=== PATIENT | female | born 1935 | race Caucasian/White ===

== ENCOUNTER → 2016-06-17 | Outpatient (CLI) | payer OTHER, MEDICARE ==
[~2016-06-17] MED LIST: AZITTAB PO; MULT-506 PO; PRAV20TA PO; SENNTAB23 PO; SERT25TA PO
--- NOTE | 2016-06-17 13:30 | MAMMOGRAPHY REPORT ---
BILATERAL DIGITAL SCREENING MAMMOGRAM WITH CAD: 06/17/2016 CLINICAL HISTORY: Routine screening. Patient has no complaints. TECHNIQUE: Current study was also evaluated with a Computer Aided Detection (CAD) system. Bilatera l CC and MLO views were obtained. COMPARISON: Comparison is made to exams dated: 06/10/2015 mammogram, 06/04/2013 mammogram, 06/06/2014 mammogram, 06/01/2012 mammogram, 05/31/2011 mammogram, and 05/28/2010 mammogram - [facility]. BREAST COMPOSITION: There are scattered areas of fibroglandular density in both breasts. FINDINGS: No suspicious masses, calcifications, or areas of architectural distortion are noted in e ither breast. There has been no significant interval change compared to prior exams. Bilateral asym metries and scattered bilateral benign-appearing calcifications are not significantly changed. IMPRESSION: ACR BI-RADS CATEGORY 2: BENIGN There is no mammographic evidence of malignancy. A 1 year screening mammogram is recommended. The p atient will receive written notification of the results. Approximately 10% of breast cancers are not detected with mammography. A negative mammographic repor t should not delay biopsy if a clinically suggestive mass is present. Ellie Max M.D. ah/:06/17/2016 12:02:42 Heel Sprayer: Tarsha BILLY([place])(M), [facility] letter sent: Normal 1/2 BI-RADS Code: ACR BI-RADS Category 2: Benign
== END | disposition home or self-care (01) ==
LOC: C.MAMM 10:17
PROVIDERS: ATTEND Internal Medicine Pulmonary Disease
DX: Z12.31 Encounter for screening mammogram for malignant neoplasm of breast (principal)

== ENCOUNTER 2016-10-24 11:41 | Emergency (ER) | payer OTHER, MEDICARE ==
[~2016-10-24] VITALS: Ht 170.2 cm; Wt 61.0 kg
[~2016-10-24 11:41] MED LIST changes: -AZITTAB PO
[2016-10-24 11:43] VITALS: Ht 170.2 cm; Wt 61.0 kg
--- NOTE | 2016-10-24 11:58 | EMERGENCY ROOM VISIT NOTE ---
History Report prepared by Augustine: Teodora Jin Under the Supervision of: Dr. Jamel Ricks M.D. First contact with patient: 11:47 Chief Complaint: COUGH Stated Complaint: COUGH X 1 WK, RIB PAIN History of Present Illness The patient is an 81 year old female who presents to the Emergency Room with complaints of a persistent cough for the past week. The patient reports that she went to [facility] this morning for her cough. She states that while she was there she had a chest x-ray done and her heart rate was elevated. The patient reports that today she developed hemoptysis. She reports pain in her chest with coughing. The patient states that she goes to cardio-rehab three times per week. She denies any history of a previous [place] or heart disease. The patient denies being on any anti-coagulants. Source of History: patient Onset: the past week Position: other (global) Quality: other (cough) Timing: other (persistent) Associated Symptoms: + chest pain Note: Associated Symptoms: hemoptysis Review of Systems All systems have been listed, reviewed, and are negative other than those previously mentioned. Please see Additional Medical History Sheet. Past Medical & Surgical Surgical Problems: (1) History of knee replacement (2) Hx of cholecystectomy Family History Cancer Gallbladder disease Lung disease Social History Smoking Status: Never Smoker Smokeless Tobacco Use: No Alcohol Use: occasionally Drug Use: none Marital Status: Housing Status: lives with significant other Occupation Status: retired Current/Historical Medications Scheduled Azithromycin (Zithromax Z-Ta), 0 PO UD Multivitamin (Multivitamin), 1 TAB PO QAM Pravastatin (Pravachol ), 20 MG PO HS Sertraline (Zoloft), 25 MG PO HS Allergies Coded Allergies: Adhesives (Verified Allergy, Unknown, REDNESS ON CHEST FROM BANDAIDS, ) Physical Exam Vital Signs Date Time Temp Pulse Resp B/P (MAP) Pulse Ox O2 Delivery O2 Flow Rate FiO2 10/24/16 13:12 36.6 75 20 158/89 95 10/24/16 13:11 95 Room Air 10/24/16 13:00 75 20 158/89 95 Room Air 10/24/16 11:43 36.6 104 18 136/77 97 Room Air Physical Exam GENERAL: Patient awake, alert, oriented x 3. Patient follows commands. Patient does not appear toxic. Patient is adequately hydrated and well- nourished. SKIN: No erythema, pallor, cyanosis or rash HEENT: Normal head, pupils equal, reactive to light and accommodation. Increased cerumen bilaterally. Oral cavity and posterior pharynx appear normal. Neck: Without adenopathy, no neck vein distention. CHEST WALL: Pain on inspiration on anterior chest. LUNGS: Clear to auscultation. No wheezes, no rales, no rhonchi. HEART: No murmurs. No gallops. No rubs ABDOMEN: No masses, no rebound, no hepatomegaly or splenomegaly. EXTREMITIES: No signs of trauma. No pedal or pretibial edema. No calf or thigh tenderness. NEUROLOGIC: Cranial nerves II-XII within normal limits. No gross motor sensory function deficits. Medical Decision & Procedures ER Provider Diagnostic Interpretation: [facility]: Slight atelectasis left base, no other infiltrates seen. Laboratory Results 10/24/16 12:00 Red Blood Count 4.91, Mean Corpuscular Volume 94.9, Mean Corpuscular Hemoglobin 31.6, Mean Corpuscular Hemoglobin Concent 33.3, Mean Platelet Volume 9.3, Neutrophils (%) (Auto) 55.0, Lymphocytes (%) (Auto) 25.6, Monocytes (%) (Auto) 11.0, Eosinophils (%) (Auto) 7.6, Basophils (%) (Auto) 0.6, Neutrophils # (Auto ) 2.59, Lymphocytes # (Auto) 1.21, Monocytes # (Auto) 0.52, Eosinophils # (Auto ) 0.36, Basophils # (Auto) 0.03 10/24/16 12:00 Test 10/24/16 12:00 White Blood Count 4.72 K/uL (4.8-10.8) Red Blood Count 4.91 M/uL (4.2-5.4) Hemoglobin 15.5 g/dL (12.0-16.0) Hematocrit 46.6 % (37-47) Mean Corpuscular Volume 94.9 fL (80-100) Mean Corpuscular Hemoglobin 31.6 pg (25-34) Mean Corpuscular Hemoglobin Concent 33.3 g/dl (32-36) Platelet Count 202 K/uL (130-400) Mean Platelet Volume 9.3 fL (7.4-10.4) Neutrophils (%) (Auto) 55.0 % Lymphocytes (%) (Auto) 25.6 % Monocytes (%) (Auto) 11.0 % Eosinophils (%) (Auto) 7.6 % Basophils (%) (Auto) 0.6 % Neutrophils # (Auto) 2.59 K/uL (1.4-6.5) Lymphocytes # (Auto) 1.21 K/uL (1.2-3.4) Monocytes # (Auto) 0.52 K/uL (0.11-0.59) Eosinophils # (Auto) 0.36 K/uL (0-0.5) Basophils # (Auto) 0.03 K/uL (0-0.2) RDW Standard Deviation 45.2 fL (36.4-46.3) RDW Coefficient of Variation 13.0 % (11.5-14.5) Immature Granulocyte % (Auto) 0.2 % Immature Granulocyte # (Auto) 0.01 K/uL (0.00-0.02) Anion Gap 10.0 mmol/L (3-11) Est Creatinine Clear Calc Drug Dose 61.6 ml/min Estimated GFR () 94.6 Estimated GFR (Non- 81.6 BUN/Creatinine Ratio 21.1 (10-20) Calcium Level 8.8 mg/dl (8.5-10.1) Troponin I < 0.015 ng/ml (0-0.045) Laboratory results as stated above per my review. ECG Indication: other (cough) Rate (beats per minute): 96 Rhythm: normal sinus Findings: no acute ischemic change, no ectopy ED Course 1148: Past medical records reviewed. The patient was evaluated in room A11B. A complete history and physical examination was performed. 1249: I reevaluated the patient and she is resting comfortably. I discussed the exam findings with her and I discussed the treatment plan. She verbalized complete understanding and agreement. She is ready to go home. Medical Decision Nurses notes reviewed. Medical history sheet reviewed. Differential diagnosis includes but is not limited to: pneumonia, hemoptysis, PE, TB, bronchitis, rib fracture. 81-year-old female with a small amount of hemoptysis was sent here from [facility] for further evaluation. The patient has a small amount of atelectasis left base. White count is not elevated. Troponin and EKG appear normal. The patient is not hypoxic and I do not believe she has a PE. No rib fractures were seen on plain films. I believe the patient can safely return home. The patient will be placed on a course of Zithromax but will require follow-up to make sure that she is improving. Medication Reconciliation: I attest that I have personally reviewed the patient' s current medication list. Blood pressure Screening: Patient was found to have normal blood pressure on screening and does not require follow up. Impression Primary Impression: Pneumonitis Scribe Attestation The scribe's documentation has been prepared under my direction and personally reviewed by me in its entirety. I confirm that the note above accurately reflects all work, treatment, procedures, and medical decision making performed by me. Departure Information Dispostion Home / Self-Care Prescriptions Azithromycin (ZITHROMAX Z-TA) 250 Mg Tab 0 PO UD, #1 PKT Prov: Jamel Ricks M.D. 10/24/16 Referrals Ubaldo Max M.D. (PCP) Forms HOME CARE DOCUMENTATION FORM, IMPORTANT VISIT INFORMATION Patient Instructions My [facility] Additional Instructions 2 Zithromax today followed by one daily for 4 days. Continue all of your current medications as prescribed. Follow-up with your family physician/sign language interpreter within the next 7 days. Return here sooner if you become more short of breath or cough up more blood.
[2016-10-24 12:16] LABS: BASO % 0.6 %; BASO ABS # 0.03 K/uL (0-0.2); COMPLETE YES; EOS % 7.6 %; HEMATOCRIT 46.6 % (37-47); IG% 0.2 %; LYMPH % 25.6 %; LYMPH ABS # 1.21 K/uL (1.2-3.4); MEAN CELL VOLUME 94.9 fL (80-100); MEAN CORPUSCULAR HEMOGLOBIN 31.6 pg (25-34); MEAN CORPUSCULAR HGB CONC 33.3 g/dl (32-36); MEAN PLATELET VOLUME 9.3 fL (7.4-10.4); PLATELET COUNT 202 K/uL (130-400); RED BLOOD COUNT 4.91 M/uL (4.2-5.4); WHITE BLOOD COUNT 4.72 K/uL (4.8-10.8)
[2016-10-24 12:40] LABS: BLOOD UREA NITROGEN 15 mg/dl (7-18); BUN/CREATININE RATIO 21.1 (10-20); CALCIUM 8.8 mg/dl (8.5-10.1); CARBON DIOXIDE 26 mmol/L (21-32); CHLORIDE 107 mmol/L (98-107); CREATININE 0.69 mg/dl (0.60-1.20); GLUCOSE 102 mg/dl (70-99); POTASSIUM 4.1 mmol/L (3.5-5.1); SODIUM 143 mmol/L (136-145)
[2016-10-24] MEDS ORDERED: AZITTAB PO (12:58)
[2016-10-24 13:12] VITALS: BP 158/89; PULSE 75; TEMP 36.6; O2SAT 95
== END 2016-10-24 13:13 | disposition home or self-care (01) ==
LOC: C.EDB 11:42 → C.EDA 13:13
DX: J18.9 Pneumonia, unspecified organism (principal); Z80.9 Family history of malignant neoplasm, unspecified; Z83.79 Family history of other diseases of the digestive system; Z83.6 Family history of other diseases of the respiratory system; Z79.899 Other long term (current) drug therapy

== ENCOUNTER → 2016-11-09 | Outpatient (CLI) | payer OTHER, MEDICARE ==
[~2016-11-09] MED LIST changes: -SENNTAB23 PO
--- NOTE | 2016-11-09 10:02 | DIAGNOSTIC IMAGING REPORT ---
CHEST 2 VIEWS ROUTINE CLINICAL HISTORY: Acute bronchitis. COMPARISON STUDY: Chest radiograph the 2014. FINDINGS: Cervical spine fusion hardware is noted. There is no pneumothorax or pleural effusion. No evidence of pulmonary edema. No consolidation is identified. Linear left basilar opacity is unchanged and suggests atelectasis. Cardiomediastinal silhouette is normal. IMPRESSION: No acute cardiopulmonary findings. Electronically signed by: Colton Payton M.D. 11/09/2016 10:01 AM Dictated Date/Time: 11/09/2016 10:00 AM
== END | disposition home or self-care (01) ==
LOC: C.RAD1850 09:35
PROVIDERS: ATTEND Physician Assistant Medical
DX: J20.9 Acute bronchitis, unspecified (principal)

== ENCOUNTER → 2017-02-11 | Outpatient (CLI) | payer OTHER, MEDICARE ==
[2017-02-11 13:08] LABS: BASO % 0.5 %; BASO ABS # 0.03 K/uL (0-0.2); COMPLETE YES; EOS % 6.4 %; HEMATOCRIT 46.7 % (37-47); IG% 0.2 %; LYMPH % 30.5 %; LYMPH ABS # 1.71 K/uL (1.2-3.4); MEAN CELL VOLUME 95.9 fL (80-100); MEAN CORPUSCULAR HEMOGLOBIN 32.2 pg (25-34); MEAN CORPUSCULAR HGB CONC 33.6 g/dl (32-36); MEAN PLATELET VOLUME 9.7 fL (7.4-10.4); MONO % 9.6 %; NEUT % 52.8 %; PLATELET COUNT 217 K/uL (130-400); RED BLOOD COUNT 4.87 M/uL (4.2-5.4)
[2017-02-11 13:15] LABS: URINE APPEARANCE CLOUDY (CLEAR); URINE BILIRUBIN NEG (NEG); URINE COLOR YELLOW; URINE EPITHELIAL CELL AUTO >30 /lpf (0-5); URINE NITRITE NEG (NEG); URINE SPECIFIC GRAVITY 1.022 (1.000-1.030); UROBILINOGEN NEG (NEG); ZZUR CULT IF INDIC CLEAN CATCH YES
[2017-02-11 13:17] LABS: MANUAL MICROSCOPIC REQUIRED? NO; REVIEW REQ? YES
[2017-02-11 13:26] LABS: ALT/SGPT 26 U/L (12-78); AST/SGOT 21 U/L (15-37); BLOOD UREA NITROGEN 22 mg/dl (7-18); BUN/CREATININE RATIO 33.1 (10-20); CALCIUM 9.3 mg/dl (8.5-10.1); CARBON DIOXIDE 26 mmol/L (21-32); CHLORIDE 107 mmol/L (98-107); CREATININE 0.65 mg/dl (0.60-1.20); GLUCOSE 110 mg/dl (70-99); POTASSIUM 4.2 mmol/L (3.5-5.1); SODIUM 140 mmol/L (136-145)
[2017-02-11 13:36] LABS: ALB/GLOB RATIO 1.3 (0.9-2); ALKALINE PHOSPHATASE 70 U/L (45-117); CHOLESTEROL 198 mg/dl (0-200); CHOLESTEROL/HDL RATIO 2.5; HDL CHOLESTEROL 78 mg/dl; LDL CHOLESTEROL CALCULATED 95 mg/dl; TRIGLYCERIDES 123 mg/dl (0-150); VERY LOW DENSITY LIPOPROT CALC 25 mg/dl
== END | disposition home or self-care (01) ==
LOC: C.LAB1850 10:24
PROVIDERS: ATTEND Internal Medicine Pulmonary Disease
DX: Z00.00 Encounter for general adult medical examination without abnormal findings (principal); R39.9 Unspecified symptoms and signs involving the genitourinary system; F32.9 Major depressive disorder, single episode, unspecified; E78.5 Hyperlipidemia, unspecified; G62.9 Polyneuropathy, unspecified; M48.06 Spinal stenosis, lumbar region; M15.9 Polyosteoarthritis, unspecified

== ENCOUNTER → 2017-05-30 | Outpatient (CLI) | payer OTHER, MEDICARE ==
[2017-05-30 12:13] LABS: BASO % 0.7 %; BASO ABS # 0.04 K/uL (0-0.2); EOS % 6.3 %; EOS ABS # 0.36 K/uL (0-0.5); HEMATOCRIT 43.9 % (37-47); HEMOGLOBIN 14.7 g/dL (12.0-16.0); IG# 0.03 K/uL (0.00-0.02); LYMPH % 24.9 %; LYMPH ABS # 1.42 K/uL (1.2-3.4); MEAN CELL VOLUME 97.1 fL (80-100); MEAN CORPUSCULAR HEMOGLOBIN 32.5 pg (25-34); MEAN CORPUSCULAR HGB CONC 33.5 g/dl (32-36); MEAN PLATELET VOLUME 9.6 fL (7.4-10.4); MONO % 8.9 %; MONO ABS # 0.51 K/uL (0.11-0.59); NEUT % 58.7 %; NEUT ABS # 3.34 K/uL (1.4-6.5); PLATELET COUNT 227 K/uL (130-400); RED CELL DISTRIBUTION WIDTH CV 13.3 % (11.5-14.5); RED CELL DISTRIBUTION WIDTH SD 47.2 fL (36.4-46.3)
[2017-05-30 12:21] LABS: HEMOGLOBIN A1C 5.3 % (4.5-5.6)
[2017-05-30 12:29] LABS: ALBUMIN 3.8 gm/dl (3.4-5.0); ALT/SGPT 23 U/L (12-78); AST/SGOT 16 U/L (15-37); BLOOD UREA NITROGEN 16 mg/dl (7-18); CALCIUM 9.3 mg/dl (8.5-10.1); CARBON DIOXIDE 29 mmol/L (21-32); CREATININE 0.67 mg/dl (0.60-1.20); GLUCOSE 106 mg/dl (70-99); SODIUM 138 mmol/L (136-145)
[2017-05-30 12:38] LABS: ALKALINE PHOSPHATASE 71 U/L (45-117)
== END ==
LOC: C.LAB1850 09:56
PROVIDERS: ATTEND Physician Assistant Medical
DX: R61 Generalized hyperhidrosis (principal)

== ENCOUNTER → 2017-06-20 | Outpatient (CLI) | payer OTHER, MEDICARE ==
--- NOTE | 2017-06-21 13:29 | MAMMOGRAPHY REPORT ---
BILATERAL DIGITAL SCREENING MAMMOGRAM TOMOSYNTHESIS WITH CAD: 06/20/2017 CLINICAL HISTORY: Routine screening. TECHNIQUE: Breast tomosynthesis in addition to standard 2D mammography was performed. Current study was also evaluated with a Computer Aided Detection (CAD) system. COMPARISON: Comparison is made to exams dated: 06/17/2016 mammogram, 06/10/2015 mammogram, 06/06/2014 ma mmogram, 06/04/2013 mammogram, 06/01/2012 mammogram, and 05/31/2011 mammogram - [facility]. BREAST COMPOSITION: There are scattered areas of fibroglandular density in both breasts. FINDINGS: A linear scar marker overlies the upper outer middle one third of the right breast. There are stable asymmetries in each lateral breast. No suspicious mass, architectural distortion or clust er of microcalcifications is seen. IMPRESSION: ACR BI-RADS CATEGORY 1: NEGATIVE There is no mammographic evidence of malignancy. A 1 year screening mammogram is recommended. The pa tient will receive written notification of the results. Approximately 10% of breast cancers are not detected with mammography. A negative mammographic report should not delay biopsy if a clinically suggestive mass is present. Irene Melgar M.D. ay/:06/20/2017 15:38:41 Manufacturing Clerk: Marshall TIRADO)(Lila), [facility] letter sent: Normal 1/2 BI-RADS Code: ACR BI-RADS Category 1: Negative
== END | disposition home or self-care (01) ==
LOC: C.MAMM 10:31
PROVIDERS: ATTEND Internal Medicine Pulmonary Disease
DX: Z12.31 Encounter for screening mammogram for malignant neoplasm of breast (principal)

== ENCOUNTER 2024-12-11 16:16 | Inpatient (IN) ==
[2024-12-11 17:09] LABS: Hematocrit (blood only) 43.6 % (37.0-47.0); Hemoglobin 14.6 g/dl (12.0-16.0); Immature Granulocytes # (auto) 0.02 K/uL (0.01-0.20); Immature Granulocytes % (auto) 0.3 %; Mean Corpuscular Hemoglobin 30.9 pg (25.0-34.0); Mean Corpuscular Volume 92.2 fL (80.0-100.0); Platelet Count 231 K/uL (130-400); RDW Standard Deviation 43.3 fL (36.4-46.3); Red Blood Count 4.73 M/uL (4.20-5.40); White Blood Count 6.17 K/ul (4.8-10.8)
[2024-12-11 17:25] LABS: Alanine Aminotransferase 12 U/L (7-52); Albumin Globulin Ratio 1.4 (0.9-2); Alkaline Phosphatase 70 U/L (34-104); Anion Gap 4 (3-11); Bilirubin,Total 0.4 mg/dl (0.2-1.0); Blood Urea Nitrogen 19 mg/dl (6-23); Calcium 9.6 mg/dl (8.6-10.3); Carbon Dioxide 30 mmol/L (21-32); Chloride 103 mmol/L (98-107); Globulin 2.8 gm/dl (2.5-4.0); Glucose 103 mg/dl (70-99(Fasting)); Lipase 21 U/L (11-82); Potassium 4.0 mmol/L (3.5-5.1); Sodium 137 mmol/L (136-145); Total Protein 6.8 gm/dl (6.0-8.3)
[2024-12-11 17:50] LABS: Appearance Urine Clear (Clear); Bacteria Urine Automated 1+ (None Seen); Cast Urine Automated 0-2 /lpf (0-2); Epithelial Cell Urine Auto 0-2 /hpf (0-2); Glucose Urine UA Negative (Negative); RBC Urine Automated 0-2 /hpf (0-2)
[2024-12-11] MEDS: OPTIRAY 320 100ml IV ONE (17:51)
--- NOTE | 2024-12-11 18:18 | Emergency Department Note ---
Impression & Plan Right sided abdominal pain, Common bile duct dilatation, Asymptomatic bacteriuria ED Provider Note NAME: GOMEZ CHAVARRIA AGE: 89 SEX: F : 1935 ARRIVES VIA: Walk-In INFORMANT: Patient ED PROVIDER(S): Fredrick Pierre MD CHIEF COMPLAINT: Right flank pain PLAN: Disposition: Admit MEDICAL DECISION MAKING: The patient is a pleasant 89-year-old woman with past medical history of IBS, hyperlipidemia, anxiety who presents emerged department via walk-in accompanied by her daughter for evaluation of right flank pain that came on suddenly this afternoon. She notes that she has had some increased frequency in urination but relates this to having to wait in the waiting room and otherwise denies burning or blood in her urine. She has any nausea, vomiting or diarrhea. She reports having a minor fall a week ago but had no pain after that. She reports she was doing physical therapy yesterday wonders if this could be related. She reports that pain is an 8/10 when she moves but a minimal 2/10 at rest. She has any chest pain or shortness of breath. Of note, the patient did arrive to emergency department during time of high volume, acuity and prolonged emergency department waiting times. Critical pathways initiated from triage. On evaluation patient is no acute distress, afebrile with blood pressure 140/80s and vital signs otherwise stable. She appears clinically dry. She has mild right-sided abdominal discomfort without discrete tenderness. WBC, H/H and platelets within normal limits. Chemistry without metabolic acidosis. BUN/creatinine 29 consistent with patient's clinical dry appearance. LFTs unremarkable. Lipase is normal. UA with 1+ bacteria and WBCs however negative nitrites. CT of the abdomen pelvis was performed and demonstrates dilated CBD measuring 1.3 mm with mild where further assessment is advised though is described as unchanged. Upon reevaluation patient reported continued pain in her right abdominal area. While CT findings are unchanged given location may correlate we agreed to proceed with admission for further evaluation. Case was discussed with Dr. Narvaez, [facility] hospitalist, who will evaluate the patient for admission. Further management per admitting team. Triage Nursing notes reviewed and agree them. Prior/external medical records reviewed Vital Signs: reviewed Differential diagnosis: Renal colic, UTI, appendicitis, diverticulitis, mesenteric ischemia, aortic pathology, infections, inflammatory bowel disease, PUD, biliary pathology, as well as other pathologies. ER treatment provided: See below. Diagnostics interpreted by me: Cardiac Monitoring: An order for continuous cardiac monitoring was placed and demonstrated normal sinus rhythm, 70 bpm, no ectopy. Laboratory studies: See below Imaging studies: See below Consultation(s): Case was discussed with Dr. Narvaez, [facility] hospitalist, who will evaluate the patient for admission. HPI: Per MDM. ROS: See above HPI for pertinent positives & negatives. A total of 10 systems reviewed and were otherwise negative. VITALS:See Below PHYSICAL EXAMINATION: GENERAL: Awake, alert, in no distress HENT: Normocephalic, atraumatic. Oropharynx with dry mucous membranes and otherwise unremarkable. EYES: Normal conjunctiva. Sclera non-icteric. NECK: Supple. No nuchal rigidity. FROM. No JVD. RESPIRATORY: Clear to auscultation. CARDIAC: Regular rate, normal rhythm. Extremities warm and well perfused. Pulses equal. ABDOMEN: Soft, non-distended. Mild right-sided abdominal discomfort without discrete tenderness to palpation. No rebound or guarding. No masses. MUSCULOSKELETAL: Chest examination reveals no tenderness. The back is symmetrical on inspection without obvious abnormality. There is no CVA tenderness to palpation. No joint edema. LOWER EXTREMITIES: Calves are equal size bilaterally and non-tender. No edema. No discoloration. NEURO: Normal sensorium. No sensory or motor deficits noted. SKIN: No rash or jaundice noted. Fredrick Pierre MD Past Med/Surg History Problem List Asymptomatic bacteriuria (Acute) Common bile duct dilatation (Acute) Right sided abdominal pain (Acute) Recurrent falls Collapse of both external ear canals Lumbar radiculopathy History of skin cancer Peripheral edema Degenerative scoliosis Foot drop, left Lumbar stenosis Pessary maintenance Sensorineural hearing loss of both ears (Chronic) Poor word recognition ability Rectocele (Acute) Peripheral neuropathy (Acute) Irritable bowel syndrome (Acute) Esophageal reflux (Acute) Dyslipidemia (Acute) Depression (Acute) Anxiety (Acute) Medical History Synovial cyst of popliteal space [Akins], left knee Malignant melanoma of skin Pes anserinus tendinitis of right lower extremity History of pelvic mass History of humerus fracture History of basal cell carcinoma Traumatic open wound of left lower leg Procidentia of uterus Incomplete uterovaginal prolapse Surgical History H/O colonoscopy (2011) S/P tonsillectomy Hx of cataract surgery Cervical vertebral fusion H/O dilation and curettage H/O lumpectomy History of knee replacement (2014) Hx of cholecystectomy Family History Father Lung cancer smoker Mother Arthritis Hearing loss Other No family history of adverse response to anesthesia No family history of bleeding disorder Social History Smoking Status: Unknown if ever smoked Tobacco Type: Cigarettes Age Started Using Tobacco: 15; Age Quit Using Tobacco: 40; packs per day: 0.25; Cigarettes Per Day: 1/4 pack per day; Second Hand Exposure: Yes; Do You Dip or Chew Tobacco: No; Hx Alcohol Use: No Hx Substance Use: No Preferred Language: Lao Communication Ability: Effective Visual Impairment: No Limitations Hearing Ability: Normal Cigar Bander Required: No Beliefs That Will Affect Care: None marital status: Current Living Situation: Alone current occupational status: retired Other Information That Helps Us Care for You: Yes (hard of hearing!) Feels Safe at Home: Yes Safety Concerns: Feels Safe At This Time Childhood Exposure to Second-Hand Smoke: No Seatbelt Use: always Assistive Devices: Cane Allergies Allergies Allergy/AdvReac Type Severity Reaction Status Date / Time No Known Allergies Allergy Verified 12/11/24 20:17 Home Meds Home Medications Medication Instructions Recorded Confirmed multivitamin 1 tab PO QAM 10/06/18 12/11/24 diphenhydramine 25 1 tab PO HS PRN Sleep 12/07/19 12/11/24 mg-acetaminophen 500 mg tablet (Tylenol PM Extra Strength) cholecalciferol (vitamin D3) 25 1,000 unit PO QAM 02/27/21 12/11/24 mcg (1,000 unit) capsule (Vitamin D3) cyanocobalamin (vitamin B-12) 1,000 mcg PO QAM 02/27/21 12/11/24 1,000 mcg tablet (Vitamin B-12) hyoscyamine sulfate 0.125 mg tablet 0.125 mg PO TID PRN Dyspepsia 04/25/23 12/11/24 fluorouracil 5 % topical cream 1 applic topical DAILY 01/04/24 12/11/24 Previous Rx's Medication Instructions Recorded pravastatin 20 mg tablet 20 mg PO HS #90 tabs 04/11/24 sertraline 25 mg tablet 25 mg PO HS #90 tabs 04/11/24 gabapentin 300 mg capsule 300 mg PO QID #360 caps 06/22/24 dicyclomine 10 mg capsule 10 mg PO TID PRN abdominal 08/30/24 pain/cramping #90 caps tramadol 50 mg tablet 50 mg PO BID #180 tabs 10/03/24 Results & Data (ED) Vital Signs Vital Signs - 24 hr 12/11/24 16:19 12/11/24 18:17 12/11/24 20:00 Temperature 36.2 C L Temperature Source Temporal Artery Scan Pulse Rate 81 Pulse Rate [Right Finger] 73 70 Pulse Rate from SpO2 Sensor Pulse Rhythm [Right Finger] Regular Pulse Strength [Right Finger] Normal Respiratory Rate 16 16 20 Respiratory Effort / Characteristics Non-Labored Spontaneous Non-Labored Spontaneous Non-Labored Spontaneous Respiratory Depth Normal Normal Normal Respiratory Pattern Regular Regular Regular Blood Pressure 132/74 Blood Pressure [Right Arm] 148/89 H 157/129 H Blood Pressure Mean 93 Blood Pressure Mean [Right Arm] 108 138 Blood Pressure Position Sitting Blood Pressure Position [Right Arm] Lying Pulse Oximetry 95 100 96 Oxygen Delivery Method Room Air Room Air Room Air Sepsis Recent Fever Within 48 Hours No Sepsis New/Unexplained Change in Mental Status No Sepsis Action Taken by Nursing No Action Required 12/11/24 20:35 12/11/24 20:36 12/11/24 20:42 Temperature Temperature Source Pulse Rate 67 70 73 Pulse Rate [Right Finger] Pulse Rate from SpO2 Sensor 71 72 Pulse Rhythm [Right Finger] Pulse Strength [Right Finger] Respiratory Rate 16 20 Respiratory Effort / Characteristics Respiratory Depth Respiratory Pattern Blood Pressure Blood Pressure [Right Arm] Blood Pressure Mean Blood Pressure Mean [Right Arm] Blood Pressure Position Blood Pressure Position [Right Arm] Pulse Oximetry 92 94 Oxygen Delivery Method Sepsis Recent Fever Within 48 Hours Sepsis New/Unexplained Change in Mental Status Sepsis Action Taken by Nursing 12/11/24 20:51 12/11/24 21:00 12/11/24 21:02 Temperature Temperature Source Pulse Rate 72 93 H Pulse Rate [Right Finger] Pulse Rate from SpO2 Sensor 74 85 Pulse Rhythm [Right Finger] Pulse Strength [Right Finger] Respiratory Rate 13 18 Respiratory Effort / Characteristics Respiratory Depth Respiratory Pattern Blood Pressure 139/79 Blood Pressure [Right Arm] Blood Pressure Mean 113 Blood Pressure Mean [Right Arm] Blood Pressure Position Blood Pressure Position [Right Arm] Pulse Oximetry 94 95 Oxygen Delivery Method Sepsis Recent Fever Within 48 Hours Sepsis New/Unexplained Change in Mental Status Sepsis Action Taken by Nursing 12/11/24 21:02 12/11/24 21:18 12/11/24 21:21 Temperature Temperature Source Pulse Rate 75 76 Pulse Rate [Right Finger] Pulse Rate from SpO2 Sensor 75 76 Pulse Rhythm [Right Finger] Pulse Strength [Right Finger] Respiratory Rate 17 13 Respiratory Effort / Characteristics Respiratory Depth Respiratory Pattern Blood Pressure 139/79 Blood Pressure [Right Arm] Blood Pressure Mean 113 Blood Pressure Mean [Right Arm] Blood Pressure Position Blood Pressure Position [Right Arm] Pulse Oximetry 97 93 Oxygen Delivery Method Sepsis Recent Fever Within 48 Hours Sepsis New/Unexplained Change in Mental Status Sepsis Action Taken by Nursing 12/11/24 21:30 12/11/24 21:30 12/11/24 21:51 Temperature Temperature Source Pulse Rate Pulse Rate [Right Finger] Pulse Rate from SpO2 Sensor 83 Pulse Rhythm [Right Finger] Pulse Strength [Right Finger] Respiratory Rate 18 Respiratory Effort / Characteristics Respiratory Depth Respiratory Pattern Blood Pressure 155/93 H 155/93 H Blood Pressure [Right Arm] Blood Pressure Mean 129 129 Blood Pressure Mean [Right Arm] Blood Pressure Position Blood Pressure Position [Right Arm] Pulse Oximetry 95 Oxygen Delivery Method Sepsis Recent Fever Within 48 Hours Sepsis New/Unexplained Change in Mental Status Sepsis Action Taken by Nursing 12/11/24 21:54 12/11/24 22:00 12/11/24 22:01 Temperature Temperature Source Pulse Rate 73 Pulse Rate [Right Finger] Pulse Rate from SpO2 Sensor 74 Pulse Rhythm [Right Finger] Pulse Strength [Right Finger] Respiratory Rate 16 Respiratory Effort / Characteristics Non-Labored Respiratory Depth Normal Respiratory Pattern Blood Pressure 153/73 H Blood Pressure [Right Arm] Blood Pressure Mean 95 Blood Pressure Mean [Right Arm] Blood Pressure Position Blood Pressure Position [Right Arm] Pulse Oximetry 95 Oxygen Delivery Method Sepsis Recent Fever Within 48 Hours Sepsis New/Unexplained Change in Mental Status Sepsis Action Taken by Nursing 12/11/24 22:03 12/11/24 22:12 12/11/24 22:39 Temperature Temperature Source Pulse Rate Pulse Rate [Right Finger] Pulse Rate from SpO2 Sensor 71 72 70 Pulse Rhythm [Right Finger] Pulse Strength [Right Finger] Respiratory Rate 12 17 Respiratory Effort / Characteristics Respiratory Depth Respiratory Pattern Blood Pressure Blood Pressure [Right Arm] Blood Pressure Mean Blood Pressure Mean [Right Arm] Blood Pressure Position Blood Pressure Position [Right Arm] Pulse Oximetry 94 93 94 Oxygen Delivery Method Sepsis Recent Fever Within 48 Hours Sepsis New/Unexplained Change in Mental Status Sepsis Action Taken by Nursing 12/11/24 22:42 12/11/24 22:51 Temperature Temperature Source Pulse Rate Pulse Rate [Right Finger] Pulse Rate from SpO2 Sensor 73 71 Pulse Rhythm [Right Finger] Pulse Strength [Right Finger] Respiratory Rate 19 17 Respiratory Effort / Characteristics Respiratory Depth Respiratory Pattern Blood Pressure Blood Pressure [Right Arm] Blood Pressure Mean Blood Pressure Mean [Right Arm] Blood Pressure Position Blood Pressure Position [Right Arm] Pulse Oximetry 90 91 Oxygen Delivery Method Sepsis Recent Fever Within 48 Hours Sepsis New/Unexplained Change in Mental Status Sepsis Action Taken by Nursing Laboratory Data Attestation: I reviewed the patient's lab results. 12/11/24 16:40 12/11/24 16:40 Lab Results 12/11/24 12/11/24 Range/Units 16:40 17:15 WBC 6.17 (4.8-10.8) K/ul RBC 4.73 (4.20-5.40) M/uL Hgb 14.6 (12.0-16.0) g/dl Hct 43.6 (37.0-47.0) % MCV 92.2 (80.0-100.0) fL MCH 30.9 (25.0-34.0) pg MCHC 33.5 (32.0-36.0) g/dL RDW Std Deviation 43.3 (36.4-46.3) fL RDW Coeff of Cresencio 12.7 (11.5-14.5) % Plt Count 231 (130-400) K/uL MPV 8.9 L (9.4-12.4) fL Immature Gran % (Auto) 0.3 % Neut % (Auto) 60.1 % Lymph % (Auto) 27.9 % [place] % (Auto) 8.6 % Eos % (Auto) 2.6 % Baso % (Auto) 0.5 % Neut # (Auto) 3.71 (1.40-6.50) K/uL Lymph # (Auto) 1.72 (1.20-3.40) K/uL [place] # (Auto) 0.53 (0.11-0.59) K/uL Eos # (Auto) 0.16 (0.00-0.50) K/uL Baso # (Auto) 0.03 (0.00-0.20) K/uL Immature Gran # (Auto) 0.02 (0.01-0.20) K/uL Sodium 137 (136-145) mmol/L Potassium 4.0 (3.5-5.1) mmol/L Chloride 103 (98-107) mmol/L Carbon Dioxide 30 (21-32) mmol/L Anion Gap 4 (3-11) BUN 19 (6-23) mg/dl Creatinine 0.64 (0.6-1.2) mg/dl Est Cr Clr Drug Dosing Not Reportable eGFR 84.42 BUN/Creatinine Ratio 29.7 H (10-20) Glucose 103 H (70-99(Fasting)) mg/dl Calcium 9.6 (8.6-10.3) mg/dl Total Bilirubin 0.4 (0.2-1.0) mg/dl AST 23 (13-39) U/L ALT 12 (7-52) U/L Alkaline Phosphatase 70 (34-104) U/L Total Protein 6.8 (6.0-8.3) gm/dl Albumin 4.0 (3.4-5.0) gm/dl Globulin 2.8 (2.5-4.0) gm/dl Albumin/Globulin Ratio 1.4 (0.9-2) Lipase 21 (11-82) U/L Urine Color Yellow Urine Appearance Clear (Clear) Urine pH 7.5 (4.5-7.5) Ur Specific [place] 1.008 (1.000-1.030) Urine Protein Negative (Negative) Urine Glucose (UA) Negative (Negative) Urine Ketones Negative (Negative) Urine Blood Negative (Negative) Urine Nitrite Negative (Negative) Urine Bilirubin Negative (Negative) Urine Urobilinogen Negative (Negative) Ur Leukocyte Esterase 3+ H (Negative) Urine WBC (Auto) 11-20 H (0-5) /hpf Urine RBC (Auto) 0-2 (0-2) /hpf U Hyaline Cast (Auto) 0-2 (0-2) /lpf U Epithel Cells (Auto) 0-2 (0-2) /hpf Urine Bacteria (Auto) 1+ H (None Seen) Urine Comment Administered Medications Acetaminophen (Ofirmev) 1,000 mg in 100 mls @ 400 mls/hr IV Q8H PRN PRN Reason: Pain or Fever Stop: 12/14/24 23:22 Last Admin: 12/12/24 05:16 Dose: 400 mls/hr Documented By: KELSEY Sodium Chloride (Nss) 1,000 mls @ 80 mls/hr IV .[id number] FLORI Stop: 12/12/24 11:52 Last Admin: 12/12/24 01:30 Dose: 80 mls/hr Documented By: KELSEY Sertraline HCl (Sertraline Hcl 50 Mg Tablet) 25 mg PO HS FLORI Stop: 01/10/25 23:22 Last Admin: 12/12/24 01:28 Dose: 25 mg Documented By: KELSEY Discontinued Medications Sodium Chloride (Nss) 500 mls @ 999 mls/hr IV .Q31M ONE Stop: 12/11/24 18:45 Last Infusion: 12/11/24 19:00 Dose: Infused Documented By: Admin: 12/11/24 18:27 Dose: 999 mls/hr Documented By: KYLAH Acetaminophen (Ofirmev) 1,000 mg in 100 mls @ 400 mls/hr IV NOW STA Stop: 12/11/24 18:29 Last Infusion: 12/11/24 19:00 Dose: Infused Documented By: Admin: 12/11/24 18:27 Dose: 400 mls/hr Documented By: KYLAH Ioversol (Optiray 320 100ml) 93 ml IV ONCE ONE Stop: 12/11/24 17:52 Last Admin: 12/11/24 17:51 Dose: 93 ml Documented By: BRITTANY Morphine Sulfate (Morphine Sulfate 2 Mg/Ml Carp) 2 mg IV NOW STA Stop: 12/11/24 20:14 Last Admin: 12/11/24 20:26 Dose: 2 mg Documented By: DUSTY Ondansetron HCl (Ondansetron Inj 2 Mg/Ml 2 Ml Vial) 4 mg IV NOW STA Stop: 12/11/24 20:14 Last Admin: 07/29/25 20:26 Dose: 4 mg Documented By: NAW Imaging Data Radiologist's Impression: Abdomen/Pelvis CT 12/11/24 17:30 EXAM: CT abd pelvis IV con only CLINICAL HISTORY: LLQ pain; diarrhea TECHNIQUE: CT of the abdomen and pelvis was performed with and without contrast (93ml Opti 320), with the following protocol: axial images with, and reconstructed coronal and sagittal images. One of the following dose reduction techniques was utilized for this exam: Automated exposure control, adjustment of the mA and/or kV according to patient size, and use of iterative reconstruction. COMPARISON: 12/15/2014. FINDINGS: Abdomen: Liver: Normal in size, shape, and density. No focal lesions, cysts, or masses were identified. Hepatic vasculature and biliary ducts are unremarkable. Gallbladder and Biliary System: The gallbladder is resected. Dilated CBD measures about 1.3 with mild intrahepatic biliary tree dilatation. Pancreas: Pancreatic head, body, and tail are visualized and appear normal in size and density. No pancreatic masses or calcifications were noted. The pancreatic duct is not dilated. Spleen: Normal in size, shape, and density. No splenic lesions or masses were identified. Appendix: The short appendix/stump has an appendicolith but no inflammatory changes. Kidneys and Adrenal Glands: Both kidneys are normal in size, shape, and position. Cortical thickness is within normal limits. No renal calculi or hydronephrosis. Adrenal glands are unremarkable with no evidence of masses or hyperplasia. Pelvis: Urinary Bladder: Normal in contour and wall thickness. No intraluminal lesions identified. Uterus: Normal in size contains fibroid measures about 3 x 2.5 cm. Ovaries: Not well visualized but no gross abnormalities noted. Vagina: Normal in contour and wall thickness. Cervix: No evidence of mass or abnormal thickening. Peritoneal and Retroperitoneal Structures: The abdominal aorta and major branches show atherosclerosis. Right fat-containing inguinal hernia noted. No free fluid or abnormal fluid collections were identified within the abdomen or pelvis. No lymphadenopathy was noted. Bowel: Fecal loading in the large bowel noted The visualized bowel loops are normal in caliber and appearance. No evidence of bowel obstruction or wall thickening. Bones and Soft Tissues: Severe Degenerative changes of the lumbar spine with left-sided scoliosis noted. No fractures or abnormal masses were identified. Atelactatic bands and ground glass opacites involving the lower lungs noted. IMPRESSION: 1. Dilated CBD measures about 1.3 with mild intrahepatic biliary tree dilatation. Further assessment is advised. Unchanged 2. Uterine fibroid. Unchanged 3. Right fat-containing inguinal hernia noted. Unchnaged 4. Severe Degenerative changes of the lumbar spine with left-sided scoliosis noted. Unchanged. Electronically signed by Colt Alford 12-11-2024 7:14 PM Discharge Plan Visit Data Chief Complaint: Flank Pain Stated Complaint: RT FLANK PAIN ED Provider: Fredrick Pierre Discharge Problem: Right sided abdominal pain, Common bile duct dilatation, Asymptomatic bacteriuria Patient Disposition: Admitted As Inpatient Condition: Fair Discharge Instructions Interventions: ED Discharge Assessment Last Done: 12/11/24 23:23
[2024-12-11] MEDS: SODIUM CHLORIDE 0.9% 500 ML IV ONE (18:27)
[2024-12-11] MEDS: ACETAMINOPHEN 1,000 MG/100 ML VIAL IV STA (18:27)
--- NOTE | 2024-12-11 19:15 | CT Scan Report ---
EXAM: CT abd pelvis IV con only CLINICAL HISTORY: LLQ pain; diarrhea TECHNIQUE: CT of the abdomen and pelvis was performed with and without contrast (93ml Opti 320), with the following protocol: axial images with, and reconstructed coronal and sagittal images. One of the following dose reduction techniques was utilized for this exam: Automated exposure control, adjustment of the mA and/or kV according to patient size, and use of iterative reconstruction. COMPARISON: 12/15/2014. FINDINGS: Abdomen: Liver: Normal in size, shape, and density. No focal lesions, cysts, or masses were identified. Hepatic vasculature and biliary ducts are unremarkable. Gallbladder and Biliary System: The gallbladder is resected. Dilated CBD measures about 1.3 with mild intrahepatic biliary tree dilatation. Pancreas: Pancreatic head, body, and tail are visualized and appear normal in size and density. No pancreatic masses or calcifications were noted. The pancreatic duct is not dilated. Spleen: Normal in size, shape, and density. No splenic lesions or masses were identified. Appendix: The short appendix/stump has an appendicolith but no inflammatory changes. Kidneys and Adrenal Glands: Both kidneys are normal in size, shape, and position. Cortical thickness is within normal limits. No renal calculi or hydronephrosis. Adrenal glands are unremarkable with no evidence of masses or hyperplasia. Pelvis: Urinary Bladder: Normal in contour and wall thickness. No intraluminal lesions identified. Uterus: Normal in size contains fibroid measures about 3 x 2.5 cm. Ovaries: Not well visualized but no gross abnormalities noted. Vagina: Normal in contour and wall thickness. Cervix: No evidence of mass or abnormal thickening. Peritoneal and Retroperitoneal Structures: The abdominal aorta and major branches show atherosclerosis. Right fat-containing inguinal hernia noted. No free fluid or abnormal fluid collections were identified within the abdomen or pelvis. No lymphadenopathy was noted. Bowel: Fecal loading in the large bowel noted The visualized bowel loops are normal in caliber and appearance. No evidence of bowel obstruction or wall thickening. Bones and Soft Tissues: Severe Degenerative changes of the lumbar spine with left-sided scoliosis noted. No fractures or abnormal masses were identified. Atelactatic bands and ground glass opacites involving the lower lungs noted. IMPRESSION: 1. Dilated CBD measures about 1.3 with mild intrahepatic biliary tree dilatation. Further assessment is advised. Unchanged 2. Uterine fibroid. Unchanged 3. Right fat-containing inguinal hernia noted. Unchnaged 4. Severe Degenerative changes of the lumbar spine with left-sided scoliosis noted. Unchanged. Electronically signed by Colt Alford 12-11-2024 7:14 PM
[2024-12-11] MEDS: ONDANSETRON INJ 2 MG/ML 2 ML VIAL IV STA (20:26)
[2024-12-11] MEDS: MoRPHine SULFATE 2 MG/ML CARP IV STA (20:26)
--- NOTE | 2024-12-11 22:53 | History & Physical Report ---
Date of Service December 11, 2024 Assessment & Plan (1) Right sided abdominal pain: (2) Common bile duct dilatation: (3) Asymptomatic bacteriuria: (4) Recurrent falls: (5) Peripheral neuropathy: (6) Irritable bowel syndrome: (7) Esophageal reflux: (8) Dyslipidemia: (9) Depression: (10) Anxiety: (11) Hx of cholecystectomy: Plan 89 year old female with PMHx of HLD, bilateral hearing loss, peripheral neuropathy, anxiety/depression, GERD, IBS presenting with acute onset RUQ abdominal pain: #RUQ Abdominal Pain: CT A/P w/IV contrast demonstrated 1.3cm dilated common bile duct with mild intrahepatic biliary tree dilatation Unremarkable labs - AST/ALT, alk phos, bili all WNL Suspect sphincter of oddi dysfunction, though not entirely clear whether RUQ pain truly linked to CT findings Alternately, consider MSK etiology based on reproducible TTP over the rib itself, particularly if GI work up is unremarkable GI consult placed, appreciate recommendations on whether MRCP or ERCP warranted NPO at midnight Tylenol and morphine PRN for pain control Zofran PRN for nausea #Recurrent falls: Recurrent mechanical falls - PT/OT eval and treat #Asx Bacteriuria: UA +LE, 11-20 WBCs, 1+bacteria but without accompanying dysuria, urgency, or frequency #Depression/Anxiety: Continue Zoloft #HLD: Continue pravastatin #Peripheral neuropathy: Continue gabapentin #GERD: Continue PPI Dispo: Admit med/surg VTE ppx: SCDs, chemical ppx deferred pending GI evaluation Diet: NPO at midnight Conditional Code: Compressions and defibrillation okay, no advanced airway support History of Present Illness Primary Care Provider: Connie Ochoa DO 89 year old female with PMHx of HLD, bilateral hearing loss, peripheral neuropathy, anxiety/depression, GERD, IBS presenting with acute onset RUQ abdominal pain. RUQ pain, sharp intermittent, started abruptly earlier in the day. Patient had just finished doing some work outside, nothing particularly strenuous. Not exacerbated with movement but reproducible with palpation. Pain did not follow a meal, patient tolerated food throughout the day but reports some nausea since arriving. Denies vomiting or diarrhea. Last BM yesterday, states it was normal. Denies fevers, chills, urinary sx. Patient has had multiple falls within the past two weeks, attributes them to making turns too fast when using her walker. Denies associated trauma to torso or abdominal region. Patient also has remote h/o cholecystectomy. ED Course: Labs unremarkable. CT A/P w/IV contrast demonstrated 1.3cm dilated common bile duct with mild intrahepatic biliary tree dilatation. Allergies Allergy/AdvReac Type Severity Reaction Status Date / Time No Known Allergies Allergy Verified 12/11/24 20:17 Home Medications Medication Instructions Recorded Confirmed Type multivitamin 1 tab PO QAM 10/06/18 12/11/24 History diphenhydramine 25 1 tab PO HS PRN Sleep 12/07/19 12/11/24 History mg-acetaminophen 500 mg tablet (Tylenol PM Extra Strength) cholecalciferol (vitamin D3) 25 1,000 unit PO QAM 02/27/21 12/11/24 History mcg (1,000 unit) capsule (Vitamin D3) cyanocobalamin (vitamin B-12) 1,000 mcg PO QAM 02/27/21 12/11/24 History 1,000 mcg tablet (Vitamin B-12) hyoscyamine sulfate 0.125 mg tablet 0.125 mg PO TID PRN Dyspepsia 04/25/23 12/11/24 History fluorouracil 5 % topical cream 1 applic topical DAILY 01/04/24 12/11/24 History pravastatin 20 mg tablet 20 mg PO HS #90 tabs 04/11/24 12/11/24 Rx sertraline 25 mg tablet 25 mg PO HS #90 tabs 04/11/24 12/11/24 Rx gabapentin 300 mg capsule 300 mg PO QID #360 caps 06/22/24 12/11/24 Rx dicyclomine 10 mg capsule 10 mg PO TID PRN abdominal 08/30/24 12/11/24 Rx pain/cramping #90 caps tramadol 50 mg tablet 50 mg PO BID #180 tabs 10/03/24 12/11/24 Rx Past Med/Surg History Problem List (Updated 12/12/24 @ 00:43 by Fredrick Pierre MD) Asymptomatic bacteriuria (Acute) Common bile duct dilatation (Acute) Right sided abdominal pain (Acute) Recurrent falls Collapse of both external ear canals Lumbar radiculopathy History of skin cancer Peripheral edema Degenerative scoliosis Foot drop, left Lumbar stenosis Pessary maintenance Sensorineural hearing loss of both ears (Chronic) Poor word recognition ability Rectocele (Acute) Peripheral neuropathy (Acute) Irritable bowel syndrome (Acute) Esophageal reflux (Acute) Dyslipidemia (Acute) Depression (Acute) Anxiety (Acute) Medical History Synovial cyst of popliteal space [Akins], left knee Malignant melanoma of skin Pes anserinus tendinitis of right lower extremity History of pelvic mass History of humerus fracture History of basal cell carcinoma Traumatic open wound of left lower leg Procidentia of uterus Incomplete uterovaginal prolapse Surgical History H/O colonoscopy (2011) S/P tonsillectomy Hx of cataract surgery Cervical vertebral fusion H/O dilation and curettage H/O lumpectomy History of knee replacement (2014) Hx of cholecystectomy Family History Father Lung cancer Mother Arthritis Hearing loss Other No family history of adverse response to anesthesia No family history of bleeding disorder Social History Smoking Status: Unknown if ever smoked Tobacco Type: Cigarettes Age Started Using Tobacco: 15; Age Quit Using Tobacco: 40; packs per day: 0.25; Cigarettes Per Day: 1/4 pack per day; Second Hand Exposure: Yes; Do You Dip or Chew Tobacco: No; Hx Alcohol Use: No Hx Substance Use: No Preferred Language: Pashto Communication Ability: Effective Visual Impairment: No Limitations Hearing Ability: Normal Cone Marker Required: No Beliefs That Will Affect Care: None marital status: Current Living Situation: Alone current occupational status: retired Other Information That Helps Us Care for You: Yes (hard of hearing!) Feels Safe at Home: Yes Safety Concerns: Feels Safe At This Time Childhood Exposure to Second-Hand Smoke: No Seatbelt Use: always Assistive Devices: Cane Review of Systems Review of Systems: as per HPI Physical Exam Physical Exam: Constitutional: no acute distress HEENT: NCAT, no conjunctival injection CV: extremities well-perfused, no LE edema Resp: lungs CTAB, no increased work of breathing GI: soft, nondistended, +TTP in RUQ, no rebound tenderness, rigidity, or guarding. MSK: no gross deformities. Right anterior aspect of lower ribs focally focally tender to palpation. Skin: warm, dry, no rash appreciated Neuro: alert, oriented, no focal neurologic deficit appreciated Results & Data Results & Data Vital Signs (Past 12 Hours) Vital Signs Temp Pulse Pulse Resp BP BP Pulse Ox 12/11/24 21:51 18 95 12/11/24 21:30 155/93 H 12/11/24 21:30 155/93 H 12/11/24 21:21 76 13 93 12/11/24 21:18 75 17 97 12/11/24 21:02 139/79 12/11/24 21:02 139/79 12/11/24 21:00 93 H 18 95 12/11/24 20:51 72 13 94 12/11/24 20:42 73 20 94 12/11/24 20:36 70 16 92 12/11/24 20:35 67 12/11/24 20:00 70 20 157/129 H 96 12/11/24 18:17 73 16 148/89 H 100 12/11/24 16:19 36.2 C L 81 16 132/74 95 O2 Del Method 12/11/24 21:51 12/11/24 21:30 12/11/24 21:30 12/11/24 21:21 12/11/24 21:18 12/11/24 21:02 12/11/24 21:02 12/11/24 21:00 12/11/24 20:51 12/11/24 20:42 12/11/24 20:36 12/11/24 20:35 12/11/24 20:00 Room Air 12/11/24 18:17 Room Air 12/11/24 16:19 Room Air Supervising Physician Co-Signing Physician Notes Attending addendum: I have physically seen this patient, have supervised the medical residents activities, and agree with the H&P unless as otherwise noted. Assessment and Plan: The patient is an 89-year-old female with past medical history including recurrent falls, lumbar radiculopathy, history of skin cancer, lumbar spinal stenosis, peripheral neuropathy, GERD, IBS, dyslipidemia, anxiety and depression. She presents to the emergency department with complaint of right upper quadrant abdominal pain. Right upper quadrant abdominal pain- CT scan abdomen pelvis with IV contrast shows a 1.3 cm dilated CBD with mild intrahepatic biliary tree dilatation. Patient is status post cholecystectomy several years ago. Patient does have normal laboratories including AST, ALT, alkaline phosphatase and total bilirubin Admit to medical bed N.p.o. after midnight Patient did receive from the ED normal saline 500 mL bolus, Tylenol 1 g IV, morphine sulfate 2 mg IV, Zofran 4 mg IV. Acetaminophen 1 g IV every 8 hours as needed mild pain or fever Morphine sulfate 1 mg IV every 3 hours as needed moderate pain Morphine sulfate 2 mg IV every 3 hours as needed severe pain Zofran 4 mg IV every 6 hours as needed Normal saline at 80 mL/h x 1 L Pantoprazole 40 mg IV daily Follow serial CBC with differential, chemistry profile Consult gastroenterology Asymptomatic bacteriuria- Follow urine culture and sensitivity No antibiotics at this time Peripheral neuropathy- Continue gabapentin Anxiety and depression- Continue sertraline Resident Activity Tracking Resident Involvement: Resident Care Provided Care Provided: Adult [facility]
[2024-12-11] MEDS ORDERED: MoRPHine SULFATE 2 MG/ML CARP IV PRN ×2 (23:23)
[2024-12-11] MEDS ORDERED: MELATONIN 3 MG TAB PO PRN (23:23)
[2024-12-11] MEDS ORDERED: ONDANSETRON INJ 2 MG/ML 2 ML VIAL IV PRN (23:23)
[2024-12-12] MEDS: SERTRALINE HCL 50 MG TABLET PO SCH (01:28)
[2024-12-12] MEDS: SODIUM CHLORIDE 0.9% 1,000 ML IV SCH (01:30)
--- NOTE | 2024-12-12 03:58 | Billing Data ---
Date of Service December 12, 2024 Coding Level of Care Code 33964 INT INP/OBS CARE
[2024-12-12] MEDS: ACETAMINOPHEN 1,000 MG/100 ML VIAL IV PRN (05:16)
[2024-12-12 08:36] LABS: Hematocrit (blood only) 40.2 % (37.0-47.0); Hemoglobin 13.3 g/dl (12.0-16.0); Mean Corpuscular Hemoglobin 30.6 pg (25.0-34.0); Mean Corpuscular Volume 92.4 fL (80.0-100.0); Platelet Count 187 K/uL (130-400); RDW Standard Deviation 43.4 fL (36.4-46.3); Red Blood Count 4.35 M/uL (4.20-5.40); White Blood Count 5.06 K/ul (4.8-10.8)
[2024-12-12 08:49] LABS: Alanine Aminotransferase 295.0 U/L (7-52); Albumin Globulin Ratio 1.6 (0.9-2); Alkaline Phosphatase 81.0 U/L (34-104); Anion Gap 3.0 (3-11); Bilirubin,Total 0.7 mg/dl (0.2-1.0); Blood Urea Nitrogen 15.0 mg/dl (6-23); Calcium 8.5 mg/dl (8.6-10.3); Carbon Dioxide 30.0 mmol/L (21-32); Chloride 105.0 mmol/L (98-107); Creatinine Clr Calc Pharmacy 50.9 ml/min; Globulin 2.2 gm/dl (2.5-4.0); Glucose 105.0 mg/dl (70-99(Fasting)); Potassium 4.3 mmol/L (3.5-5.1); Sodium 138.0 mmol/L (136-145); Total Protein 5.8 gm/dl (6.0-8.3)
--- NOTE | 2024-12-12 08:49 | Hospitalist Progress Note ---
Date of Service December 12, 2024 Assessment & Plan (1) Right sided abdominal pain: (2) Transaminasemia: (3) Common bile duct dilatation: (4) Asymptomatic bacteriuria: Plan In summary this is an 89-year-old female who presented with sudden onset right upper quadrant pain now found to have increasing AST and ALT with prior cholecystectomy. #Right upper quadrant pain with transaminasemia Most likely at this time consequential of obstructive biliary sludge and/or stone given the onset of symptoms and mildy increased dilation observed on imaging obtained thus far; at this time is hemodynamically stable and without evidence of infection -Start maintenance IVF -Follow daily CMP -Gastroenterology consulted; anticipated MRCP on 12/13 #Asymptomatic Bacteriuria Incidentally found in ED assessment; no indication for treatment at this time Diet: n.p.o. with sips of water DVT ppx: Start enoxparin 40 mg SQ daily Access: Peripheral IV Code Status: Cardiac interventions without intubation or mechanical ventilation Admission and Anticipated Discharge Date Admission Date: December 11, 2024 Subjective Ms. Liao is an 89-year-old female whose active medical conditions include hyperlipidemia, hypertension, irritable bowel syndrome, asymptomatic bacteriuria among other chronic medical conditions who presented to [facility] on 12/11 due to persistent right upper quadrant abdominal pain. This began after eating lunch on 12/11. She has not experienced pain similar to this previously, though they cannot recall the circumstances surrounding their prior cholecystectomy Review of Systems Review of Systems: Constitutional: denies fevers, chills, malaise, fatigue Cardiovascular: denies angina, palpitations, syncope, peripheral edema Pulmonary: denies cough, dyspnea on exertion, pleuritic chest pain Gastrointestinal: denies nausea, hematemesis, emesis, dysphagia, odynophagia, regurgitation, dyspepsia, abdominal distension, constipation, diarrhea, melanotic stool, hematochezia, jaundice Genitourinary: denies dysuria, hematuria, urinary incontinence Neurologic: denies focal weakness, paresthesias or numbness Integumentary: denies new or developing rashes or lesions Physical Exam Physical Exam: General: elderly adult in no acute distress Vital Signs: Reviewed HEENT: Normocephalic, atraumatic; pupils equally reactive to light, extraocular motions intact; tacky mucous membranes Neck: No palpable lymphadenopathy Pulmonary: symmetric chest wall excursion; CTAB Cardiovascular: Regular rate and rhythm with no murmurs, rubs, or gallops; S1 and S2 normal; bilateral radial and posterior tibial pulses 2+; trace bilateral lower extremity edema distal of the mid leg Gastrointestinal: Soft, nondistended; normal frequency and pitch of bowel sounds throughout; no palpable masses or organomegaly; tender to palpation in the right upper quadrant without negative Bryant's Sign; remaining abdomen is nontender to palpation Neurologic: CN II-XII grossly intact; no discernible focal weakness nor paresthesias Results & Data Results & Data Vital Signs (Past 12 Hours) Vital Signs Pulse Pulse Resp BP BP Pulse Ox O2 Del Method 12/12/24 07:48 64 12/12/24 07:08 65 16 101/87 96 12/12/24 06:18 68 22 12/12/24 06:00 110/65 12/12/24 05:54 65 17 93 Nasal Cannula 12/12/24 05:30 64 14 12/12/24 05:24 62 18 12/12/24 05:12 138/69 12/12/24 04:42 59 L 17 100 12/12/24 04:31 103/57 L 12/12/24 04:27 60 16 100 12/12/24 04:12 60 19 100 12/12/24 04:09 60 18 100 12/12/24 04:00 103/57 L 12/12/24 03:57 61 17 100 12/12/24 03:34 Nasal Cannula 12/12/24 03:33 61 12 99 12/12/24 03:30 99/52 L 12/12/24 03:30 99/52 L 12/12/24 03:30 99/52 L 12/12/24 03:24 64 13 99 12/12/24 02:00 110/70 12/12/24 01:33 73 20 100 12/12/24 01:31 131/68 12/12/24 01:31 131/68 12/12/24 01:31 131/68 12/12/24 01:30 86 19 12/12/24 01:27 66 13 100 12/12/24 01:18 67 16 100 12/12/24 01:00 69 13 97 12/12/24 01:00 121/59 L 12/12/24 01:00 121/59 L 12/12/24 00:54 69 18 99 12/12/24 00:52 Nasal Cannula 12/12/24 00:38 108/56 L 12/12/24 00:36 74 23 12/12/24 00:28 70 12/12/24 00:27 18 98 12/12/24 00:03 68 13 98 12/12/24 00:03 98 Nasal Cannula 12/12/24 00:00 107/65 12/12/24 00:00 107/65 12/12/24 00:00 Nasal Cannula 12/11/24 23:57 67 16 98 12/11/24 23:42 70 13 99 12/11/24 23:36 71 20 99 12/11/24 23:30 111/77 12/11/24 23:21 70 14 99 12/11/24 23:12 25 H 12/11/24 23:06 16 12/11/24 22:51 17 91 12/11/24 22:42 19 90 12/11/24 22:39 17 94 12/11/24 22:12 12 93 12/11/24 22:03 94 12/11/24 22:01 153/73 H 12/11/24 21:54 73 16 95 12/11/24 21:51 18 95 12/11/24 21:30 155/93 H 12/11/24 21:30 155/93 H 12/11/24 21:21 76 13 93 12/11/24 21:18 75 17 97 12/11/24 21:02 139/79 12/11/24 21:02 139/79 12/11/24 21:00 93 H 18 95 12/11/24 20:51 72 13 94 O2 Flow Rate 12/12/24 07:48 12/12/24 07:08 12/12/24 06:18 12/12/24 06:00 12/12/24 05:54 2 12/12/24 05:30 12/12/24 05:24 12/12/24 05:12 12/12/24 04:42 12/12/24 04:31 12/12/24 04:27 12/12/24 04:12 12/12/24 04:09 12/12/24 04:00 12/12/24 03:57 12/12/24 03:34 12/12/24 03:33 12/12/24 03:30 12/12/24 03:30 12/12/24 03:30 12/12/24 03:24 12/12/24 02:00 12/12/24 01:33 12/12/24 01:31 12/12/24 01:31 12/12/24 01:31 12/12/24 01:30 12/12/24 01:27 12/12/24 01:18 12/12/24 01:00 12/12/24 01:00 12/12/24 01:00 12/12/24 00:54 12/12/24 00:52 2 12/12/24 00:38 12/12/24 00:36 12/12/24 00:28 12/12/24 00:27 12/12/24 00:03 12/12/24 00:03 2 12/12/24 00:00 12/12/24 00:00 12/12/24 00:00 2 12/11/24 23:57 12/11/24 23:42 12/11/24 23:36 12/11/24 23:30 12/11/24 23:21 12/11/24 23:12 12/11/24 23:06 12/11/24 22:51 12/11/24 22:42 12/11/24 22:39 12/11/24 22:12 12/11/24 22:03 12/11/24 22:01 12/11/24 21:54 12/11/24 21:51 12/11/24 21:30 12/11/24 21:30 12/11/24 21:21 12/11/24 21:18 12/11/24 21:02 12/11/24 21:02 12/11/24 21:00 12/11/24 20:51 Laboratory Results 12/12/24 12/11/24 12/11/24 08:20 17:15 16:40 WBC 5.06 6.17 RBC 4.35 4.73 Hgb 13.3 14.6 Hct 40.2 43.6 MCV 92.4 92.2 MCH 30.6 30.9 MCHC 33.1 33.5 RDW Std Deviation 43.4 43.3 RDW Coeff of Cresencio 12.8 12.7 Plt Count 187 231 MPV 8.9 L 8.9 L Immature Gran % (Auto) 0.3 Neut % (Auto) 60.1 Lymph % (Auto) 27.9 [place] % (Auto) 8.6 Eos % (Auto) 2.6 Baso % (Auto) 0.5 Neut # (Auto) 3.71 Lymph # (Auto) 1.72 [place] # (Auto) 0.53 Eos # (Auto) 0.16 Baso # (Auto) 0.03 Immature Gran # (Auto) 0.02 Sodium 138 137 Potassium 4.3 4.0 Chloride 105 103 Carbon Dioxide 30 30 Anion Gap 3 4 BUN 15 19 Creatinine 0.60 0.64 Est Cr Clr Drug Dosing 50.9 Not Reportable eGFR 85.75 84.42 BUN/Creatinine Ratio 25.0 H 29.7 H Glucose 105 H 103 H Calcium 8.5 L 9.6 Total Bilirubin 0.7 0.4 AST 492 H 23 ALT 295 H 12 Alkaline Phosphatase 81 70 Total Protein 5.8 L 6.8 Albumin 3.6 4.0 Globulin 2.2 L 2.8 Albumin/Globulin Ratio 1.6 1.4 Lipase 21 Urine Color Yellow Urine Appearance Clear Urine pH 7.5 Ur Specific [place] 1.008 Urine Protein Negative Urine Glucose (UA) Negative Urine Ketones Negative Urine Blood Negative Urine Nitrite Negative Urine Bilirubin Negative Urine Urobilinogen Negative Ur Leukocyte Esterase 3+ H Urine WBC (Auto) 11-20 H Urine RBC (Auto) 0-2 U Hyaline Cast (Auto) 0-2 U Epithel Cells (Auto) 0-2 Urine Bacteria (Auto) 1+ H Urine Comment Diagnostic Findings Abdomen/Pelvis CT 12/11/24 17:30 EXAM: CT abd pelvis IV con only CLINICAL HISTORY: LLQ pain; diarrhea TECHNIQUE: CT of the abdomen and pelvis was performed with and without contrast (93ml Opti 320), with the following protocol: axial images with, and reconstructed coronal and sagittal images. One of the following dose reduction techniques was utilized for this exam: Automated exposure control, adjustment of the mA and/or kV according to patient size, and use of iterative reconstruction. COMPARISON: 12/15/2014. FINDINGS: Abdomen: Liver: Normal in size, shape, and density. No focal lesions, cysts, or masses were identified. Hepatic vasculature and biliary ducts are unremarkable. Gallbladder and Biliary System: The gallbladder is resected. Dilated CBD measures about 1.3 with mild intrahepatic biliary tree dilatation. Pancreas: Pancreatic head, body, and tail are visualized and appear normal in size and density. No pancreatic masses or calcifications were noted. The pancreatic duct is not dilated. Spleen: Normal in size, shape, and density. No splenic lesions or masses were identified. Appendix: The short appendix/stump has an appendicolith but no inflammatory changes. Kidneys and Adrenal Glands: Both kidneys are normal in size, shape, and position. Cortical thickness is within normal limits. No renal calculi or hydronephrosis. Adrenal glands are unremarkable with no evidence of masses or hyperplasia. Pelvis: Urinary Bladder: Normal in contour and wall thickness. No intraluminal lesions identified. Uterus: Normal in size contains fibroid measures about 3 x 2.5 cm. Ovaries: Not well visualized but no gross abnormalities noted. Vagina: Normal in contour and wall thickness. Cervix: No evidence of mass or abnormal thickening. Peritoneal and Retroperitoneal Structures: The abdominal aorta and major branches show atherosclerosis. Right fat-containing inguinal hernia noted. No free fluid or abnormal fluid collections were identified within the abdomen or pelvis. No lymphadenopathy was noted. Bowel: Fecal loading in the large bowel noted The visualized bowel loops are normal in caliber and appearance. No evidence of bowel obstruction or wall thickening. Bones and Soft Tissues: Severe Degenerative changes of the lumbar spine with left-sided scoliosis noted. No fractures or abnormal masses were identified. Atelactatic bands and ground glass opacites involving the lower lungs noted. IMPRESSION: 1. Dilated CBD measures about 1.3 with mild intrahepatic biliary tree dilatation. Further assessment is advised. Unchanged 2. Uterine fibroid. Unchanged 3. Right fat-containing inguinal hernia noted. Unchnaged 4. Severe Degenerative changes of the lumbar spine with left-sided scoliosis noted. Unchanged. Electronically signed by Colt Alford 12-11-2024 7:14 PM Abdomen Ultrasound 12/12/24 08:51 US abdomen limited HISTORY: Rule out choledocholithiasis. COMPARISON: 06/06/[address] scan yesterday and CT of 12/15/2014 FINDINGS: Pancreas is not well seen due to overlying bowel gas. Gallbladder is surgically absent. Liver is grossly unremarkable. There is normal direction of flow in the portal vein. Common bile duct measures 1.2 cm greatest diameter. Common bile duct is not completely visualized. No common bile duct stone seen in the visualized portion. There is mild intrahepatic biliary dilatation. Right kidney shows no hydronephrosis. No ascites. IMPRESSION: Biliary dilatation was present on the 2014 exam and is mildly progressive compared with the 2015 exam. This can be seen after gallbladder removal. Suggest clinical correlation with bilirubin level to see if there is any concern for biliary obstruction. ACT 112: Negative or not required by law. Electronically signed by: Austin Benavides M.D. 12/12/2024 10:09 AM Medications Administered Home Medications Medication Instructions Recorded Confirmed Last Taken multivitamin 1 tab PO QAM 10/06/18 12/11/24 12/11/24 diphenhydramine 25 1 tab PO HS PRN Sleep 12/07/19 12/11/24 Unknown mg-acetaminophen 500 mg tablet (Tylenol PM Extra Strength) cholecalciferol (vitamin D3) 25 1,000 unit PO QAM 02/27/21 12/11/24 12/11/24 mcg (1,000 unit) capsule (Vitamin D3) cyanocobalamin (vitamin B-12) 1,000 mcg PO QAM 02/27/21 12/11/24 12/11/24 1,000 mcg tablet (Vitamin B-12) hyoscyamine sulfate 0.125 mg tablet 0.125 mg PO TID PRN Dyspepsia 04/25/23 12/11/24 Unknown fluorouracil 5 % topical cream 1 applic topical DAILY 01/04/24 12/11/24 12/11/24 pravastatin 20 mg tablet 20 mg PO HS #90 tabs 04/11/24 12/11/24 12/10/24 sertraline 25 mg tablet 25 mg PO HS #90 tabs 04/11/24 12/11/24 12/10/24 gabapentin 300 mg capsule 300 mg PO QID #360 caps 06/22/24 12/11/24 12/11/24 12:00 dicyclomine 10 mg capsule 10 mg PO TID PRN abdominal 08/30/24 12/11/24 Unknown pain/cramping #90 caps tramadol 50 mg tablet 50 mg PO BID #180 tabs 10/03/24 12/11/24 12/11/24 Active Medications Generic Name Dose Route Start Last Admin Trade Name Freq PRN Reason Stop Dose Admin Acetaminophen 1,000 mg in 100 mls @ 400 mls/hr 12/11/24 23:23 12/12/24 05:35 Ofirmev IV 12/14/24 23:22 Infused Q8H PRN Infusion Pain or Fever Pantoprazole Sodium 40 mg in 10 mls @ 5 mls/min 12/12/24 09:00 12/12/24 10:35 Protonix IV 01/11/25 08:59 5 mls/min DAILY FLORI Administration Sertraline HCl 25 mg 12/11/24 23:23 12/12/24 01:28 Sertraline Hcl 50 Mg Tablet PO 01/10/25 23:22 25 mg HS FLORI Administration PG Care Time/CCT Total # of Minutes Spent Total Time Spent with Patient: Total time spent is greater than 50% in coordination of care (as documented) at patient's floor/unit and/or counseling patient: Coding Level of Care Code 60497 SUB INP/OBS CARE 3/50MIN History Detailed Exam Detailed Diagnoses Right sided abdominal pain R10.9 Transaminasemia R74.01 Common bile duct dilatation K83.8 Asymptomatic bacteriuria R82.71
--- NOTE | 2024-12-12 10:11 | Ultrasound Report ---
US abdomen limited HISTORY: Rule out choledocholithiasis. COMPARISON: 06/06/[address] scan yesterday and CT of 12/15/2014 FINDINGS: Pancreas is not well seen due to overlying bowel gas. Gallbladder is surgically absent. Dorota er is grossly unremarkable. There is normal direction of flow in the portal vein. Common bile duct me asures 1.2 cm greatest diameter. Common bile duct is not completely visualized. No common bile duct s tone seen in the visualized portion. There is mild intrahepatic biliary dilatation. Right kidney show s no hydronephrosis. No ascites. IMPRESSION: Biliary dilatation was present on the 2014 exam and is mildly progressive compared with the 2015 exam. This can be seen after gallbladder removal. Suggest clinical correlation with bilirubi n level to see if there is any concern for biliary obstruction. ACT 112: Negative or not required by law. Electronically signed by: Austin Benavides M.D. 12/12/2024 10:09 AM
[2024-12-12] MEDS: PANTOprazole 40 MG/10 ML SYR IV SCH (10:35)
--- NOTE | 2024-12-12 11:04 | Gastrointestinal Consultation ---
Date of Consultation December 12, 2024 Assessment & Plan (1) Common bile duct dilatation: 89 year old female with history of HLD, peripheral neuropathy, anxiety/depression, GERD, IBS admitted w/ RUQ abd pain CT abd ABD US w/ biliary dilation, largely unchanged w/o obstructive process. On arrival her LFTs were normal, now she has some elevation of AST/ALT Recommend MRCP to better evaluation the biliary tree Repeat LFTs tomorrow Establish bowel regimen w/ Miralax 1 capful daily I spent a total of 60 minutes on the date of service in review of patient's record, and previously obtained information in person and appropriate medical visit, discussion and education of plan, with patient and/or caregiver, placing orders for tests/referral/procedures as medically necessary and documentation of pertinent clinical information in patient's medical records for their visit today. Supervising Physician Co-Signing Physician Notes I saw and examined this patient with our nurse practitioner and agree with her assessment and plan. Patient admitted with right-sided abdominal and flank pain imaging revealed a common bile duct of 1.3 cm which had been dilated in the past she is status postcholecystectomy. Repeat LFTs are elevated. In light of this need to consider choledocholithiasis. However I believe her pain is atypical for biliary colic and is musculoskeletal and reproducible with palpation along right lateral lower rib cage. Recommend MRI MRCP to exclude biliary pathology. History of Present Illness Reason for Consultation: RUQ pain, dilated duct Requesting Physician: Alfonso Brock DO Attending Physician: Alfonso Brock DO History of Present Illness 89 year old female with history of HLD, peripheral neuropathy, anxiety/depression, GERD, IBS admitted w/ abd pain. She suggests she was g ardening, developed gradual onset of RUQ discomfort. Pain reports as sharp. Some nausea. No vomiting. Endorses constipation at baseline. Typically moves stool every other day. No black or bloody stools. Tb 0.4 --> 0.7 AST 23 --> 492 ALT 12 --> 295 ALKP 70 --> 81 ABD US 2024: Biliary dilatation was present on the 2014 exam and is mildly progressive compared with the 2014 exam. This can be seen after gallbladder removal. Suggest clinical correlation with bilirubin level to see if there is any concern for biliary obstruction. CTAP 2024: . Dilated CBD measures about 1.3 with mild intrahepatic biliary tree dilatation. Further assessment is advised. Unchanged Allergies Allergy/AdvReac Type Severity Reaction Status Date / Time No Known Allergies Allergy Verified 12/11/24 20:17 Home Medications Medication Instructions Recorded Confirmed Type multivitamin 1 tab PO QAM 10/06/18 12/11/24 History diphenhydramine 25 1 tab PO HS PRN Sleep 12/07/19 12/11/24 History mg-acetaminophen 500 mg tablet (Tylenol PM Extra Strength) cholecalciferol (vitamin D3) 25 1,000 unit PO QAM 02/27/21 12/11/24 History mcg (1,000 unit) capsule (Vitamin D3) cyanocobalamin (vitamin B-12) 1,000 mcg PO QAM 02/27/21 12/11/24 History 1,000 mcg tablet (Vitamin B-12) hyoscyamine sulfate 0.125 mg tablet 0.125 mg PO TID PRN Dyspepsia 04/25/23 12/11/24 History fluorouracil 5 % topical cream 1 applic topical DAILY 01/04/24 12/11/24 History pravastatin 20 mg tablet 20 mg PO HS #90 tabs 04/11/24 12/11/24 Rx sertraline 25 mg tablet 25 mg PO HS #90 tabs 04/11/24 12/11/24 Rx gabapentin 300 mg capsule 300 mg PO QID #360 caps 06/22/24 12/11/24 Rx dicyclomine 10 mg capsule 10 mg PO TID PRN abdominal 08/30/24 12/11/24 Rx pain/cramping #90 caps tramadol 50 mg tablet 50 mg PO BID #180 tabs 10/03/24 12/11/24 Rx Patient History Medical History Synovial cyst of popliteal space [Akins], left knee Malignant melanoma of skin Pes anserinus tendinitis of right lower extremity History of pelvic mass History of humerus fracture History of basal cell carcinoma Traumatic open wound of left lower leg Procidentia of uterus Incomplete uterovaginal prolapse Surgical History H/O colonoscopy (2011) S/P tonsillectomy Hx of cataract surgery Cervical vertebral fusion H/O dilation and curettage H/O lumpectomy History of knee replacement (2014) Hx of cholecystectomy Family History Father Lung cancer smoker Mother Arthritis Hearing loss Other No family history of adverse response to anesthesia No family history of bleeding disorder Social History Smoking Status: Unknown if ever smoked Tobacco Type: Cigarettes Age Started Using Tobacco: 15; Age Quit Using Tobacco: 40; packs per day: 0.25; Cigarettes Per Day: 1/4 pack per day; Second Hand Exposure: Yes; Do You Dip or Chew Tobacco: No; Hx Alcohol Use: No Hx Substance Use: No Preferred Language: Uzbek Communication Ability: Effective Visual Impairment: No Limitations Hearing Ability: Normal Front Window Cashier Required: No Beliefs That Will Affect Care: None marital status: Current Living Situation: Alone current occupational status: retired Other Information That Helps Us Care for You: Yes (hard of hearing!) Feels Safe at Home: Yes Safety Concerns: Feels Safe At This Time Childhood Exposure to Second-Hand Smoke: No Seatbelt Use: always Assistive Devices: Cane and Walker Review of Systems Review of Systems: All other findings negative except as noted in HPI. Physical Exam Constitutional: WD/WN, vitals as above Respiratory: normal respiratory effort, lungs clear to auscultation Cardiovascular: RRR, no murmur, no edema Gastrointestinal (Abdomen): normal bowel sounds, soft, nontender, no hepatosplenomegaly Skin: no rashes, warm and dry Results & Data Vital Signs (Past 12 Hours) Vital Signs Pulse Pulse Resp BP BP Pulse Ox O2 Del Method 12/12/24 09:07 62 13 133/73 12/12/24 07:48 64 12/12/24 07:08 65 16 101/87 96 12/12/24 06:18 68 22 12/12/24 06:00 110/65 12/12/24 05:54 65 17 93 Nasal Cannula 12/12/24 05:30 64 14 12/12/24 05:24 62 18 12/12/24 05:12 138/69 12/12/24 04:42 59 L 17 100 12/12/24 04:31 103/57 L 12/12/24 04:27 60 16 100 12/12/24 04:12 60 19 100 12/12/24 04:09 60 18 100 12/12/24 04:00 103/57 L 12/12/24 03:57 61 17 100 12/12/24 03:34 Nasal Cannula 12/12/24 03:33 61 12 99 12/12/24 03:30 99/52 L 12/12/24 03:30 99/52 L 12/12/24 03:30 99/52 L 12/12/24 03:24 64 13 99 12/12/24 02:00 110/70 12/12/24 01:33 73 20 100 12/12/24 01:31 131/68 12/12/24 01:31 131/68 12/12/24 01:31 131/68 12/12/24 01:30 86 19 12/12/24 01:27 66 13 100 12/12/24 01:18 67 16 100 12/12/24 01:00 69 13 97 12/12/24 01:00 121/59 L 12/12/24 01:00 121/59 L 12/12/24 00:54 69 18 99 12/12/24 00:52 Nasal Cannula 12/12/24 00:38 108/56 L 12/12/24 00:36 74 23 12/12/24 00:28 70 12/12/24 00:27 18 98 12/12/24 00:03 68 13 98 12/12/24 00:03 98 Nasal Cannula 12/12/24 00:00 107/65 12/12/24 00:00 107/65 12/12/24 00:00 Nasal Cannula 12/11/24 23:57 67 16 98 12/11/24 23:42 70 13 99 12/11/24 23:36 71 20 99 12/11/24 23:30 111/77 12/11/24 23:21 70 14 99 12/11/24 23:12 25 H 12/11/24 23:06 16 O2 Flow Rate 12/12/24 09:07 12/12/24 07:48 12/12/24 07:08 12/12/24 06:18 12/12/24 06:00 12/12/24 05:54 2 12/12/24 05:30 12/12/24 05:24 12/12/24 05:12 12/12/24 04:42 12/12/24 04:31 12/12/24 04:27 12/12/24 04:12 12/12/24 04:09 12/12/24 04:00 12/12/24 03:57 12/12/24 03:34 12/12/24 03:33 12/12/24 03:30 12/12/24 03:30 12/12/24 03:30 12/12/24 03:24 12/12/24 02:00 12/12/24 01:33 12/12/24 01:31 12/12/24 01:31 12/12/24 01:31 12/12/24 01:30 12/12/24 01:27 12/12/24 01:18 12/12/24 01:00 12/12/24 01:00 12/12/24 01:00 12/12/24 00:54 12/12/24 00:52 2 12/12/24 00:38 12/12/24 00:36 12/12/24 00:28 12/12/24 00:27 12/12/24 00:03 12/12/24 00:03 2 12/12/24 00:00 12/12/24 00:00 12/12/24 00:00 2 12/11/24 23:57 12/11/24 23:42 12/11/24 23:36 12/11/24 23:30 12/11/24 23:21 12/11/24 23:12 12/11/24 23:06 Laboratory Results 12/12/24 12/11/24 12/11/24 Range/Units 08:20 17:15 16:40 WBC 5.06 6.17 (4.8-10.8) K/ul RBC 4.35 4.73 (4.20-5.40) M/uL Hgb 13.3 14.6 (12.0-16.0) g/dl Hct 40.2 43.6 (37.0-47.0) % MCV 92.4 92.2 (80.0-100.0) fL MCH 30.6 30.9 (25.0-34.0) pg MCHC 33.1 33.5 (32.0-36.0) g/dL RDW Std Deviation 43.4 43.3 (36.4-46.3) fL RDW Coeff of Cresencio 12.8 12.7 (11.5-14.5) % Plt Count 187 231 (130-400) K/uL MPV 8.9 L 8.9 L (9.4-12.4) fL Immature Gran % (Auto) 0.3 % Neut % (Auto) 60.1 % Lymph % (Auto) 27.9 % [place] % (Auto) 8.6 % Eos % (Auto) 2.6 % Baso % (Auto) 0.5 % Neut # (Auto) 3.71 (1.40-6.50) K/uL Lymph # (Auto) 1.72 (1.20-3.40) K/uL [place] # (Auto) 0.53 (0.11-0.59) K/uL Eos # (Auto) 0.16 (0.00-0.50) K/uL Baso # (Auto) 0.03 (0.00-0.20) K/uL Immature Gran # (Auto) 0.02 (0.01-0.20) K/uL Sodium 138 137 (136-145) mmol/L Potassium 4.3 4.0 (3.5-5.1) mmol/L Chloride 105 103 (98-107) mmol/L Carbon Dioxide 30 30 (21-32) mmol/L Anion Gap 3 4 (3-11) BUN 15 19 (6-23) mg/dl Creatinine 0.60 0.64 (0.6-1.2) mg/dl Est Cr Clr Drug Dosing 50.9 Not Reportable eGFR 85.75 84.42 BUN/Creatinine Ratio 25.0 H 29.7 H (10-20) Glucose 105 H 103 H (70-99(Fasting)) mg/dl Calcium 8.5 L 9.6 (8.6-10.3) mg/dl Total Bilirubin 0.7 0.4 (0.2-1.0) mg/dl AST 492 H 23 (13-39) U/L ALT 295 H 12 (7-52) U/L Alkaline Phosphatase 81 70 (34-104) U/L Total Protein 5.8 L 6.8 (6.0-8.3) gm/dl Albumin 3.6 4.0 (3.4-5.0) gm/dl Globulin 2.2 L 2.8 (2.5-4.0) gm/dl Albumin/Globulin Ratio 1.6 1.4 (0.9-2) Lipase 21 (11-82) U/L Urine Color Yellow Urine Appearance Clear (Clear) Urine pH 7.5 (4.5-7.5) Ur Specific [place] 1.008 (1.000-1.030) Urine Protein Negative (Negative) Urine Glucose (UA) Negative (Negative) Urine Ketones Negative (Negative) Urine Blood Negative (Negative) Urine Nitrite Negative (Negative) Urine Bilirubin Negative (Negative) Urine Urobilinogen Negative (Negative) Ur Leukocyte Esterase 3+ H (Negative) Urine WBC (Auto) 11-20 H (0-5) /hpf Urine RBC (Auto) 0-2 (0-2) /hpf U Hyaline Cast (Auto) 0-2 (0-2) /lpf U Epithel Cells (Auto) 0-2 (0-2) /hpf Urine Bacteria (Auto) 1+ H (None Seen) Urine Comment PG Care Time/CCT Total # of Minutes Spent Total Time Spent with Patient: Total time spent is greater than 50% in coordination of care (as documented) at patient's floor/unit and/or counseling patient: Coding Level of Care Code 74123 INT INP/OBS CARE MIN Diagnoses Common bile duct dilatation K83.8
[2024-12-12] MEDS: GABAPENTIN 300 MG CAP PO SCH (13:56)
--- NOTE | 2024-12-12 18:32 | Magnetic Resonance Report ---
EXAM: MR MRCP CLINICAL HISTORY: RUQ pain, elevated AST/ALT, hx ccy, CBD dilatation. TECHNIQUE: Multiplanar multisequence magnetic resonance imaging of the abdomen without intravenous contrast. COMPARISON: CT dated 12/11/2024. FINDINGS: Limited study with motion artifacts. Liver: Limited visualization. Normal size and morphology. Homogeneous signal intensity on T2-weighted images. No focal hepatic lesions. Gallbladder: Removed. Bile Ducts: Intrahepatic and extrahepatic bile ducts are mildly prominent in caliber. Common bile duct is prominent in caliber, measuring 13 mm, likely post-cholecystectomy change with tapering distal end and no evidence of strictures or filling defects. No evidence of choledocholithiasis. Pancreas: Limited visualization. Normal size and contour. Homogeneous signal intensity on T2-weighted images. No masses or cystic lesions. Pancreatic Duct: Pancreatic duct is normal in caliber, measuring 2.9 mm. No evidence of ductal dilatation or filling defects. Spleen: Limited visualization. Normal size and appearance. Homogeneous signal intensity. Kidneys: Limited visualization. Normal size, shape, and position of both kidneys. Homogeneous signal intensity on T2-weighted images. No renal stones, masses, or hydronephrosis. Adrenal Glands: Limited visualization. Normal size and morphology bilaterally. No adrenal masses. Surrounding Structures: No evidence of free fluid or abnormal fluid collections in the abdomen. Normal appearance of the visualized bowel loops. Severe Degenerative changes of the lumbar spine with left-sided scoliosis noted. IMPRESSION: 1. Common bile duct is prominent in caliber, measuring 13 mm, likely post-cholecystectomy change with tapering distal end and no evidence of strictures or filling defects. 2. Limited study with motion artifacts. Electronically signed by Colt Alford 12-12-2024 6:31 PM
[2024-12-12] MEDS: PRAVASTATIN SOD 20 MG TAB PO SCH (19:49)
[2024-12-13 07:34] VITALS: BP 135/77; PULSE 67; RESP 18; TEMP 97.5; O2SAT 97
[2024-12-13 09:23] LABS: Hematocrit (blood only) 40.9 % (37.0-47.0); Hemoglobin 13.5 g/dl (12.0-16.0); Mean Corpuscular Hemoglobin 30.2 pg (25.0-34.0); Mean Corpuscular Volume 91.5 fL (80.0-100.0); Platelet Count 206 K/uL (130-400); RDW Standard Deviation 42.6 fL (36.4-46.3); Red Blood Count 4.47 M/uL (4.20-5.40); White Blood Count 6.25 K/ul (4.8-10.8)
[2024-12-13 09:53] LABS: Alanine Aminotransferase 165.0 U/L (7-52); Albumin Globulin Ratio 1.7 (0.9-2); Alkaline Phosphatase 74.0 U/L (34-104); Anion Gap 7.0 (3-11); Bilirubin,Total 0.6 mg/dl (0.2-1.0); Blood Urea Nitrogen 15.0 mg/dl (6-23); Calcium 9.0 mg/dl (8.6-10.3); Carbon Dioxide 27.0 mmol/L (21-32); Chloride 105.0 mmol/L (98-107); Creatinine Clr Calc Pharmacy 45.7 ml/min; Globulin 2.3 gm/dl (2.5-4.0); Glucose 102.0 mg/dl (70-99(Fasting)); Potassium 3.5 mmol/L (3.5-5.1); Sodium 139.0 mmol/L (136-145); Total Protein 6.2 gm/dl (6.0-8.3)
[2024-12-13 10:07] LABS: Hep B Surface Ag with confirm Negative (Negative)
--- NOTE | 2024-12-13 10:10 | Gastroenterology Progress Note ---
Date of Service December 13, 2024 Assessment & Plan (1) Transaminasemia: (2) Right sided abdominal pain: Plan Patients MRCP was unremarkable. LFTs are trending downward. her pain seems to be coming from over her ribs as she does not have pain to palpation of her abdomen. Discussed case with Dr. Bailey. - received tiger this morning about discharge, okay to discharge from a GI standpoint. - would plan to recheck LFTs as outpatient and follow up in the GI office as an outpatient. Admission and Anticipated Discharge Date Admission Date: December 11, 2024 Supervising Physician Co-Signing Physician Notes I saw and examined this patient with our nurse practitioner and agree with her assessment and plan. Patient was discharged prior to my seeing her today. MRI failed to reveal any extrahepatic biliary obstruction or stones. LFTs are normalizing. If she discharged should have repeat liver enzymes in a week and should follow-up with our GI office as an outpatient. Subjective 89 year old female with history of HLD, peripheral neuropathy, anxiety/depression, GERD, IBS admitted w/ RUQ abd pain CT abd ABD US w/ biliary dilation, largely unchanged w/o obstructive process. On arrival her LFTs were normal, then she has some elevation of AST/ALT. she has no abdominal pain, but does endorse pain over her right ribs. MRCP 12/12/24 1. Common bile duct is prominent in caliber, measuring 13 mm, likely post-cholecystectomy change with tapering distal end and no evidence of strictures or filling defects. 2. Limited study with motion artifacts. 12/13/24 CBC unremarkable. LFTs unremarkable other than AST 126, ALT 165. Review of Systems Review of Systems: All systems reviewed & are unremarkable except as noted in HPI & below Physical Exam Constitutional: WD/WN, vitals as above Respiratory: normal respiratory effort, lungs clear to auscultation Cardiovascular: Rate/Rhythm: regular rate and regular rhythm Gastrointestinal (Abdomen): normal bowel sounds, soft, nontender, no hepatosplenomegaly she has tenderness to palpation over her right lower rib. Psychiatric: Orientation: alert and oriented x 3 Affect: euthymic affect Results & Data Results & Data Vital Signs (Past 12 Hours) Vital Signs Temp Pulse Resp BP Pulse Ox O2 Del Method 12/13/24 07:33 97.5 F L 67 18 135/77 97 Room Air Coding Level of Care Code 07470 SUB INP/OBS CARE 2/35MIN Diagnoses Transaminasemia R74.01 Right sided abdominal pain R10.9
[2024-12-13 10:12] LABS: Hep C Ab Rflx HepCQuant RNA Negative (Negative)
--- NOTE | 2024-12-13 13:49 | Discharge Summary ---
Discharge Summary Date of Service December 13, 2024 Principal Dx & Hospital Course #1 = Principal Diagnosis (1) Right sided abdominal pain: (2) Transaminasemia: (3) Common bile duct dilatation: (4) Asymptomatic bacteriuria: Plan In summary this is an 89-year-old female who presented with sudden onset right upper quadrant pain now found to have increasing AST and ALT with prior cholecystectomy. #Right upper quadrant pain with transaminasemia most likely consequential of transiently obstructed biliary tree, AST and ALT are consistently downtrending with repeat laboratory assessment ordered for the outpatient setting #Asymptomatic Bacteriuria Incidentally found in ED assessment; no indication for treatment at this time Admission HPI Per Admitting Provider 89 year old female with PMHx of HLD, bilateral hearing loss, peripheral neuropathy, anxiety/depression, GERD, IBS presenting with acute onset RUQ abdominal pain. RUQ pain, sharp intermittent, started abruptly earlier in the day. Patient had just finished doing some work outside, nothing particularly strenuous. Not exacerbated with movement but reproducible with palpation. Pain did not follow a meal, patient tolerated food throughout the day but reports some nausea since arriving. Denies vomiting or diarrhea. Last BM yesterday, stat es it was normal. Denies fevers, chills, urinary sx. Patient has had multiple falls within the past two weeks, attributes them to making turns too fast when using her walker. Denies associated trauma to torso or abdominal region. Patient also has remote h/o cholecystectomy. ED Course: Labs unremarkable. CT A/P w/IV contrast demonstrated 1.3cm dilated common bile duct with mild intrahepatic biliary tree dilatation. Discharge Exam General: elderly adult in no acute distress Vital Signs: Reviewed HEENT: Normocephalic, atraumatic; pupils equally reactive to light, extraocular motions intact; tacky mucous membranes Neck: No palpable lymphadenopathy Pulmonary: symmetric chest wall excursion; CTAB Cardiovascular: Regular rate and rhythm with no murmurs, rubs, or gallops; S1 and S2 normal; bilateral radial and posterior tibial pulses 2+; trace bilateral lower extremity edema distal of the mid leg Gastrointestinal: Soft, nondistended; normal frequency and pitch of bowel sounds throughout; no palpable masses or organomegaly; mildly tender to palpation in the right upper quadrant with negative Bryant's Sign; remaining abdomen is nontender to palpation Neurologic: CN II-XII grossly intact; no discernible focal weakness nor paresthesias Discharge Plan Discharge Items Patient Disposition: Home - Self-Care Reason For Visit: ABDOMINAL PAIN Discharge Diagnosis: Transient biliary obstruction, spontaneously resolved Condition on Discharge: Good Activity: Resume your previous activity Non-emergency contact: Primary Care Provider Call non-emergency contact if: you have any medication questions and your symptoms worsen Follow-up/Referrals: Connie Ochoa DO [Primary Care Provider] - 12/24/24 1:30 pm Ernesto Bailey MD [Physician] - (Posthospitalization; suspected transient biliary obstruction) Diet: Regular Fluids: 1800ml (7 cups) Ambulatory Orders: Hepatic Function (Liver) Panel (Routine) Timeframe: 1 Week Location: Determined by Patient Ordered By: Alfonso Quick Attending Provider Instructions: Please schedule follow up with your primary care physician for close follow-up after your hospitalization and follow with gastroenterology referral Pending Studies at Discharge: Yes Studies:: Viral hepatitis serologies Stand-Alone Forms: My [employer] Medications and DC Order Prescriptions: Continued fluorouracil 5 % cream 1 applic topical DAILY diphenhydramine-acetaminophen [Tylenol PM Extra Strength] 25-500 mg tablet 1 tab PO HS PRN (Reason: Sleep) pravastatin 20 mg tablet 20 mg PO HS Qty: 90 3RF sertraline 25 mg tablet 25 mg PO HS Qty: 90 3RF Rx Instructions: TAKE 1 TABLET BY MOUTH AT BEDTIME gabapentin 300 mg capsule 300 mg PO QID Qty: 360 1RF dicyclomine 10 mg capsule 10 mg PO TID PRN (Reason: abdominal pain/cramping) Qty: 90 3RF tramadol 50 mg tablet 50 mg PO BID Qty: 180 1RF multivitamin Tablet 1 tab PO QAM cholecalciferol (vitamin D3) [Vitamin D3] 25 mcg (1,000 unit) capsule 1,000 unit PO QAM cyanocobalamin (vitamin B-12) [Vitamin B-12] 1,000 mcg tablet 1,000 mcg PO QAM hyoscyamine sulfate 0.125 mg tablet 0.125 mg PO TID PRN (Reason: Dyspepsia) Rx Instructions: TAKE 1 TABLET BY MOUTH THREE TIMES DAILY NEEDED for dyspepsia Discharge Orders: Discharge Order (Routine); Ordered 12/13/24 Ordered By: Alfonso Calderón/Other Patient Handouts: Abdominal Pain, Anatomy of the Digestive System Admission Data Admit Date/Time: 12/11/24 22:52 Attending Provider: Alfonso Brock Admit Provider: Jasvir Slaughter Primary Care Provider: Connie Ochoa Other Providers: Magdy Narvaez; Sangeetha Adamson; Nabor Loaiza; Veronica Larry; Anamaria Nance; Kathy Lindsay; Anastacia Prieto; Luis Ramos; Vickie Denson; Sampson Pardo; Margarita Whitfield; Nancy Berry; Tamera Arvizu; Sue Smith; Marie Ratliff; Morgan Hernandez; Narciso Cruz; Buck Hernandez; Hoda Wong; Cristiane Pratt Jr; Lew Malone; Rambo Mccann; Nikunj Gannon; Yves Tripp; Ernestina Hardwick; Ernesto Bailey I; Sheila Mitchell; Mikhail Junior; Sameer Sterling; Adarsh Jennings; Montez Gautam Other Interventions: Discharge Summary Assessment (RN) Last Done: 12/13/24 11:21 Hospital Stay Data Consultations 12/11/24 20:28 ED Decision to Admit Stat 12/11/24 23:23 Consult Gastroenterology Routine Diagnostic Imagining Performed 12/11/24 17:30 CT Abd and Pelvis [CT abd pelvis IV con only] Stat 12/12/24 08:51 US abdomen limited Urgent 12/12/24 12:40 MR MRCP Routine Pending Results Patient Have Any Pending Studies at Discharge: Yes Discharge Instructions Given to Patient (Per Discharging Provider) Please schedule follow up with your primary care physician for close follow-up after your hospitalization and follow with gastroenterology referral Total Time Total Time Spent Total Time Spent (In Minutes): 70 Coding Level of Care Code 59479 INP/OBS DISCH >30 MIN Diagnoses Right sided abdominal pain R10.9 Transaminasemia R74.01 Common bile duct dilatation K83.8 Asymptomatic bacteriuria R82.71
[2024-12-15 10:58] LABS: Hepatitis A Antibody IgM NON-REACTIVE (NON-REACTIVE); Hepatitis B Core Antibody IgM NON-REACTIVE (NON-REACTIVE)
== END 2024-12-13 11:23 | disposition home or self-care (01) | DRG 446 ==
LOC: ED 16:16 → SUATTDRO 22:52 → EDINP 22:52 → 3W 12-12 16:38